=== PATIENT | female | born 1970 | race Caucasian/White ===

== ENCOUNTER 2020-07-12 13:41 | Observation (INO) | payer OTHER, SELFPAY ==
[2020-07-12] VITALS (16 sets, daily range): BP systolic 110–131; BP diastolic 59–79; PULSE 62–79; RESP 14–20; TEMP 36–36.2; O2SAT 97–100; BMI 30.6; BMI 30.4
--- NOTE | ~2020-07-12 | MR_ITS ---
EXAMINATION: MR brain/brain stem wo/w con DATE: 07/14/2020 09:24 CUSTOMER SOLUTIONS ARCHITECT INDICATION: CVA. Fatigue. Off balance. TECHNIQUE: Magnetic resonance imaging (MRI) of the brain and brainstem was performed without and with 15 cc MultiHance intravenous contrast. Sequences included sagittal and axial T1-weighted SE, axial d iffusion-weighted FS SE, axial T2*-weighted GRE, axial T2-weighted FLAIR Propeller, and axial T2-weig hted Propeller. Apparent diffusion coefficient (ADC) maps were created. COMPARISON: CT dated 07/12/2020 FINDINGS: The brain volume and ventricular system are within normal limits. The brain parenchymal si gnal intensity pattern and vega/white matter is normal and there is no evidence of hemorrhage, space occupying masses or infarctions. The flow signal voids of the major arterial structures about the [place] and within the alesia r dural venous sinuses appear grossly unremarkable and patent. The seventh and eighth cranial nerve complexes are normal. The mid sagittal image demonstrates a normal craniovertebral junction and mary us callosum. The paranasal sinuses are grossly unremarkable. No abnormal contrast enhancement was appreciated. IMPRESSION: 1: Unremarkable MRI of the brain. Reviewed, dictated and finalized at location A. OMER SOLUTIONS ARCHITECT
--- NOTE | ~2020-07-12 | CT_ITS ---
EXAMINATION: CT chest wo con DATE: 07/12/2020 17:29 INDICATION: Abnormal chest x-ray TECHNIQUE: Computed tomography (CT) of the chest was performed without intravenous contrast. Addition al 3D reconstructions utilizing coronal maximum intensity projection (MIP) were performed. Automated exposure control and iterative reconstruction technique were employed. The dose-length product was 22 9.62 mGy-cm. COMPARISON: None FINDINGS: There are patchy airspace opacities with peripheral and lower lung predominance. No pleural effusion or pneumothorax. Mild emphysema most evident in the regions of airspace opacities. Heart size is norm al. No pericardial effusion. Thoracic aorta is normal in caliber. No pathologically enlarged thoracic lymphadenopathy. Cholecystectomy clips at the gallbladder fossa. Mild lower thoracic levocurvature w ith severe spondylosis. Chronic appearing anterior wedging at T11 and T12. Additional severe lower ce rvical spondylosis. IMPRESSION: 1. Patchy bilateral airspace opacities with peripheral and lower lung predominance. Differential woul d include pneumonia including COVID 19, pulmonary edema and more chronic interstitial lung disease wi pattern referring nonspecific interstitial pneumonia (NSIP) over usual interstitial pneumonia (UIP ) or organizing pneumonia. Reviewed, dictated and finalized at location A. ENCY COUNTER IMPRESSION: 1. Patchy bilateral airspace opacities with peripheral and lower lung predomina nce. Differential would include pneumonia including COVID 19, pulmonary edema a nd more chronic interstitial lung disease with pattern referring nonspecific in terstitial pneumonia (NSIP) over usual interstitial pneumonia (UIP) or organizi ng pneumonia.
--- NOTE | ~2020-07-12 | CT_ITS ---
EXAMINATION: CT BRAIN W/O DATE: 07/12/2020 15:40 INDICATION: Dizziness TECHNIQUE: Computed tomography (CT) of the head was performed without intravenous contrast. The dose- length product was 605.33 mGy-cm. Automated exposure control and iterative reconstruction technique w ere employed. COMPARISON: No prior studies for comparison. FINDINGS: Normal brain parenchymal volume for age. Normal vega-white differentiation. No acute intrac ranial hemorrhage, infarction, mass or mass effect. No ventriculomegaly or midline shift. Midline sagittal images demonstrate a normal corpus callosum, c raniovertebral junction and sella turcica. Basilar cisterns are patent. Paranasal sinuses and mastoids are pneumatized. No depressed skull fractures. IMPRESSION: 1. No acute intracranial abnormality. Reviewed, dictated and finalized at location B. AL ANALYTICS HEAD
--- NOTE | ~2020-07-12 | US_ITS ---
EXAMINATION: US carotid duplex BI DATE: 07/13/2020 15:31 INDICATION: Disturbance of skin sensation. Dizziness and confusion. TECHNIQUE: Grayscale, color Doppler, and pulsed Doppler images of the cervical carotid arteries were obtained. The degree of vessel stenosis is placed in one of the following categories: normal, <50%, 5 0-69%, >=70% but less than near-occlusion, near-occlusion, or total occlusion. Note that percent sten osis relative to normal distal artery lumen diameter is indirectly measured from velocity measurement s as described by Marino, et al. Radiology 2003; 229:340-346. COMPARISON: None. FINDINGS: RIGHT: The right common carotid artery (CCA) peak systolic velocity (PSV) is 92 cm/s. The right internal car otid artery (ICA) PSV is 92 cm/s. The right ICA end-diastolic velocity (EDV) is 19 cm/s. The right IC A/CCA PSV ratio is 1.0. Grayscale and color Doppler images demonstrate no appreciable stenosis or zora que in the ICA. The external carotid artery (ECA) PSV is 90 cm/s. There is antegrade flow in the righ t vertebral artery. LEFT: The left CCA PSV is 98 cm/s. The left ICA PSV is 112 cm/s. The left ICA EDV is 31 cm/s. The left ICA/ CCA PSV ratio is 1.1. Grayscale and color Doppler demonstrate no appreciable stenosis or plaque in th e ICA. The ECA PSV is 108 cm/s. There is antegrade flow in the left vertebral artery. Incidentally no sabiha is a 2.0 cm wider than tall solid hypoechoic left thyroid mass with coarse shadowing calcificatio ns (TI-RADS 4, moderately suspicious , FNA if >=1.5 cm, annual followup is >1 cm). IMPRESSION: 1. No appreciable plaque or stenosis in the right internal carotid artery. 2. No appreciable plaque or stenosis in the left internal carotid artery. 3. 2.0 cm TI-RADS 4 left thyroid nodule for which ultrasound-guided biopsy would be recommended. Reviewed, dictated and finalized at location A. Y ROLLING MACHINE OPERATOR IMPRESSION: 1. No appreciable plaque or stenosis in the right internal carotid artery. 2. No appreciable plaque or stenosis in the left internal carotid artery. 3. 2.0 cm TI-RADS 4 left thyroid nodule for which ultrasound-guided biopsy woul d be recommended.
--- NOTE | 2020-07-12 14:04 | ECG_ITS ---
Measurements Intervals [place] Rate: 76 P: 59 SD: 139 QRS: 28 QRSD: 89 T: 42 QT: 356 QTc: 401 Interpretive Statements SINUS RHYTHM BASELINE ARTIFACT- V6 NORMAL ECG Electronically Signed On 07-12-2020 14:09:20 SHEET HEATER HELPER by Donovan Gordon D.O.
[2020-07-12 14:20] LABS: Basophils Absolute Auto 0.1 K/mm3 (0.0-0.1); Basophils Percent Auto 0.8 % (0.2-1.2); Eosinophils Absolute Auto 0.3 K/mm3 (0-0.3); Eosinophils Percent Auto 3.6 % (0-4.4); Hematocrit 37.8 % (37.0-47.0); Hemoglobin 12.3 g/dL (12.0-15.0); Immature Granulocyte Absolute 0.02 K/mm3 (0.00-0.031); Immature Granulocyte Percent A 0.2 % (0-0.5); Lymphocytes Absolute Auto 2.86 K/mm3 (0.9-3.2); Lymphocytes Percent Auto 34.5 % (18.3-44.2); Mean Corpuscular HGB Conc 32.5 g/dl (32-36); Mean Corpuscular Hemoglobin 30.2 pg (26-34); Mean Corpuscular Volume 92.9 fl (80-100); Mean Platelet Volume 10.3 fl (7.4-10.4); Monocytes Absolute Auto 0.5 K/mm3 (0.1-0.6); Monocytes Percent Auto 5.5 % (2.6-8.5); Neutrophils Absolute Auto 4.6 K/mm3 (1.3-6.7); Neutrophils Percent Auto 55.4 % (45.5-73.1); Platelet Count Result 290 k/mm3 (150-375); Red Blood Count 4.07 M/mm3 (4.2-5.4); Red Cell Distribution Width 12.7 % (11.5-14.5); White Blood Count 8.3 K/mm3 (4.5-10.0)
[2020-07-12 14:33] LABS: Anion Gap 6 mmol/L (8-16); Blood Urea Nitrogen 16 mg/dL (7-17); Calcium 9.5 mg/dL (8.4-10.2); Carbon Dioxide 27 mmol/L (22-30); Chloride 107 mmol/L (98-107); Estimated CRCL calculation 58 ml/min; Estimated Glomerular Filt Rate 53; Glucose 85 mg/dL (65-105); Potassium 3.9 mmol/L (3.4-5.0); Sodium 140 mmol/L (137-145)
--- NOTE | 2020-07-12 15:24 | ED.DIZZY ---
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 4 days ago patient woke up in the morning and with confusion, dizziness and urine incontinence. Could not drive to work at that day. The symptoms are improving slightly, still feeling slightly confused ago and generally tired. Patient lives alone, history of PTSD. Patient drove herself to work today and was told by some of the nurses upstairs to go to the emergency room for further evaluation. Currently patient main complaint is generalized tiredness and unsteadiness during walking. Patient denies any fever, chills, chest pain, shortness of breath, sore throat, headache, exposure to anybody known having COVID-19 Review of Systems Review of Systems: Narrative: CONSTITUTIONAL: Denies fever, chills, or sweats. EYES: Denies visual changes, redness, or discharge. ENT: Denies rhinorrhea, congestion, sore throat, or otalgia. CARDIOVASCULAR: Denies chest pain, palpitations, or edema. RESPIRATORY: Denies cough or dyspnea. GASTROINTESTINAL: Denies abdominal pain, nausea, vomiting, or diarrhea. GENITOURINARY: Denies dysuria or hematuria. SKIN: Denies rash or itching. MUSCULOSKELETAL: Denies back pain, joint pain, or myalgia. NEUROLOGIC: Confusion, dizziness, unsteadiness PSYCHIATRIC: Denies anxiety or depression. PMFSH Social History Social History Gender identity (if verbalized by the patient): Female Exam Narrative: Exam Narrative: General appearance: Well-developed, well-nourished Skin: Normal color Head: Normocephalic, nontraumatic Eyes: Clear conjunctiva ENT: Oropharynx normal, ears normal, nose normal Neck: Supple, nontender Chest and respiratory: Airway patent, no respiratory distress, no accessory muscle use Heart: Regular rate/rhythm Abdomen: Soft, nontender, no organomegaly, quiet bowel sounds Vascular: Normal peripheral pulses, normal capillary refill. Musculoskeletal: Normal range of motion, nontender back Neurologic: Alert and oriented ?3, left upper extremity drift Course Course Emergency Course: Stable Consultations Consultation #1: nereida Date: 07/12/20 Time: 16:35 Vital Signs Vital signs: Vital Signs Temperature 36.2 C L 07/12/20 13:58 Pulse Rate 79 07/12/20 13:58 Respiratory Rate 18 07/12/20 13:58 Blood Pressure 131/79 07/12/20 13:58 Pulse Oximetry 100 07/12/20 13:58 Temperature 36.2 C L 07/12/20 13:58 Pulse Rate 79 07/12/20 13:58 Respiratory Rate 18 07/12/20 13:58 Blood Pressure 131/79 07/12/20 13:58 Pulse Oximetry 100 07/12/20 13:58 MDM - Dizziness MDM Narrative Medical decision making narrative: Patient presents with dizziness, Physical exam showed left upper extremity drift. Labs, chest x-ray, CT head ordered. Further plan to follow Differential Diagnosis Differential diagnosis: Likely orthostatic hypotension, vertebral basilar insufficiency and cerebrovascular accident Lab Data Result diagrams: 07/12/20 14:09 07/12/20 14:09 Labs: Lab Results 07/12/20 07/12/20 07/12/20 Range/Units 14:08 14:08 14:09 WBC 8.3 (4.5-10.0) K/mm3 RBC 4.07 L (4.2-5.4) M/mm3 Hgb 12.3 (12.0-15.0) g/dL Hct 37.8 (37.0-47.0) % MCV 92.9 (80-100) fl MCH 30.2 (26-34) pg MCHC 32.5 (32-36) g/dl RDW 12.7 (11.5-14.5) % Plt Count 290 (150-375) k/mm3 MPV 10.3 (7.4-10.4) fl Immature
[2020-07-12 15:58] LABS: CRP < 0.5 mg/dL (<1.0)
[2020-07-12 16:04] LABS: Erythrocyte Sedimentation Rate 21 mm/hr (0-20)
--- NOTE | 2020-07-12 16:13 | PC.NURSE ---
patient here with dizziness. see triage notes. resting on stretcher. states she takes 2 low dose BP meds for migraines. not new. texting on phone now. no pain. SL inserted. patient unhooked from monitor. sent to restroom. no dizziness now.
--- NOTE | 2020-07-12 16:45 | PC.NURSE ---
orthostatic vitals done. patient then ambulated to restroom. no dizziness. beside POC done. patient updated on current treatment plan.
[2020-07-12] MEDS: ASPIRIN 325 MG TABLET PO (17:10)
--- NOTE | 2020-07-12 17:15 | PC.NURSE ---
patient back from CT. reviewed CXR results from May with patient. CT of chest was recommended then. ASA given. patient updated on plan for admission. patient not clear on why admission is needed. will notify provider.
--- NOTE | 2020-07-12 18:20 | PC.NURSE ---
provider here in room to review treatment plan.
--- NOTE | 2020-07-12 18:34 | PC.NURSE ---
[facility] faxed. patient now agreeable to admission.
--- NOTE | 2020-07-12 19:15 | PC.NURSE ---
[facility] faxed. patient reassigned to bed 300. will swab for Covid.
--- NOTE | 2020-07-12 20:20 | ADMGEN ---
This patient, Cedric Castrejon, was admitted to [facility] Surg Room 300-01. Patient/family oriented to hospital policies and general routines including ID bracelet, bed and alarms, visiting hours, pain management, procedures, bathroom and other care routines, personal items, smoking policy, room service/diet, and visiting hours. Information on how to activate the Rapid Response Team has been discussed. Patient/Family are encouraged to report perceived risks to care and to ask questions if they do not understand what they are told or what they should do.
--- NOTE | 2020-07-12 23:48 | PM.IMHP ---
H&P: HPI History of Present Illness Date/Time: 07/12/20 23:48 Chief complaint: acute cva Narrative: Cedric Castrejon is a 49 year old female who was a history of PTSD. The patient has not had any fever chills. The patient stated that she just felt very fatigued. Four days ago she woke up and was confused and dizzy and had urinary incontinence. She has no history of having any seizures. She denies any drug or alcohol use. The patient was not able to drive and work that day. The patient's symptoms were improved from that day. However once the patient got here she felt off balance. She was able to drive herself today. 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 The nurses center to the emergency room because of her confusion. She is also on steady during walking. When ED physician evaluated her he felt that she had a pronator drift. CT scan of the brain was found to be negative. The patient denies taking any new medication or taking anything over the counter out of the ordinary. Patient was swabbed for COVID-[address] scan of the chest was read as patchy bilateral airspace opacities with peripheral and lower lung predominance. Differential would include pneumonia including COVID-19 pulmonary edema and more chronic interstitial lung disease. The patient has been a long-term smoker. The patient was given aspirin. Neurology has been consulted. Patient is being admitted into observation status. Date of service 07/12/2020 Review of Systems Review of Systems: All systems reviewed & are unremarkable except as noted in HPI and below Constitutional: Constitutional: Reports as per HPI and Reports no additional constitutional complaints Eyes: Eyes: Reports as per HPI and Reports no additional eye complaints ENT: Reports system reviewed and no additional complaints, except as documented and Reports Normal hearing present Cardiovascular: Cardiovascular: Reports no additional cardiovascular complaints Respiratory: Respiratory: Reports no additional respiratory complaints and Reports no additional respiratory complaints Gastrointestinal: Gastrointestinal: Reports as per HPI and Reports no additional gastrointestinal complaints Musculoskeletal: Musculoskeletal: Reports no additional musculoskeletal complaints Integumentary/Breasts: Skin/Breast: Reports system reviewed and no additional complaints, except as docu and Reports as per HPI Neurologic: Reports system reviewed and no additional complaints, except as documented, Reports as per HPI and Reports Normal hearing present Psychiatric: Psychiatric: Reports no additional psychiatric complaints and Reports as per HPI Endocrine: Endocrine: Reports no additional endocrine complaints Hematologic/Lymphatic: Hematologic/Lymphatic: Reports no additional hematologic/lymphatic complaints Allergic/Immunologic: Allergic/Immunologic: Reports no additional allergic/immunologic complaints [facility] Past Medical History Medical History (Updated 07/13/20 @ 00:14 by Sun Lindsey NP) Anxiety H/O gastroesophageal reflux (GERD) Migraines PTSD (post-traumatic stress disorder) Surgical History Surgical History (Updated 07/13/20 @ 00:02 by Sun Lindsey NP) H/O colposcopy with cervical biopsy H/O prior ablation treatment Hx of cholecystectomy Status post right knee replacement Family History Family History Grandparent Colon cancer Acute myocardial infarction Social History Social History (Updated 07/13/20 @ 00:03 by Sun Lindsey NP) Social History: 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 She has 3 children. The youngest 1 lives with her but has been getting ready to get . Patient smokes about half pack a cigarettes a day. She occasionally socially drinks alcohol. She denies any illicit drug use. Patient is a full code she does not have a durable power trade mark attorney for healthcare. The patient is di
[2020-07-13] VITALS (8 sets, daily range): BP systolic 106–120; BP diastolic 51–64; PULSE 65–88; RESP 16–18; TEMP 36.1–36.6; O2SAT 98–100
--- NOTE | 2020-07-13 | ECHO_ITS ---
Patient Info Name: Cedric Castrejon Age: 49 years : 1970 Gender: Female Ht: 65 in Wt: 182 lbs BSA: 1.97 m2 HR: 68 bpm BP: 118 / 60 mmHg Heart Rhythm: Sinus Rhythm Technical Quality: Good Exam Date: 07/13/2020 10:20 AM Exam Location: [facility] Pulmonary Exam Room: 300 Patient Status: Inpatient Admit Date: 07/12/2020 Staff Ordering Physician: Vaishali Soto PA-C Appliance Sales Associate: Rachel Man RDCS Attending Provider: Vaishali Soto PA-C Referring Physician: BREA JAMESON MD; Exam Type: CA echo doppler w bubble study Study Info Indications - stroke symptoms Complete two-dimensional, color flow and Doppler transthoracic echocardiogram is performed with agitated saline. Contrast/Agitated Saline Contrast/Ag. Saline: Agitated Saline Amount: 20.00 ml Existing IV Access: Yes IV Access Condition: patent with no signs of infiltration Summary 1. Left ventricular systolic function is normal, estimated at 55-60%. 2. There is no increased left ventricular wall thickness. 3. Intracardiac shunt at atrial level consistent with small patent foramen ovale with injection of agitated saline with Valsalva. Shunt not appreciated without Valsalva. Clinical correlation advised. Consider transesophageal echocardiogram if clinically indicated. 4. There is trace mitral valve regurgitation. 5. There is trace tricuspid valve regurgitation. 6. No pulmonary hypertension, estimated pulmonary arterial systolic pressure is 28 mmHg. 7. There is no aortic valve stenosis. 8. Normal inferior vena cava with >50% collapse upon inspiration consistent with normal right atrial pressure, 5 mmHg. Left Ventricle Left ventricular chamber dimension is normal. Left ventricular systolic function is normal, estimated at 55-60%. There is no increased left ventricular wall thickness. The left ventricular diastolic function is grade I diastolic dysfunction. Right Ventricle Right ventricular chamber dimension is normal. Right ventricular systolic function is normal. Left Atria Left atrial chamber dimension is normal. Right Atria Right atrial chamber dimension is normal. Atrial Septum Intracardiac shunt at atrial level consistent with small patent foramen ovale with injection of agitated saline with Valsalva. Shunt not appreciated without Valsalva. Clinical correlation advised. Consider transesophageal echocardiogram if clinically indicated. Aortic Valve The aortic valve is trileaflet. There is mild aortic valve sclerosis. There is no aortic valve stenosis. There is trace aortic valve regurgitation. Pulmonic Valve The pulmonic valve is not well visualized. There is trace pulmonic regurgitation. Mitral Valve The mitral valve has thickened leaflets. There is trace mitral valve regurgitation. Tricuspid Valve The tricuspid valve leaflets are normal. There is trace tricuspid valve regurgitation. No pulmonary hypertension, estimated pulmonary arterial systolic pressure is 28 mmHg. Pericardium/Pleural The pericardium appears normal. There is no pericardial effusion. Inferior Vena Cava Normal inferior vena cava with >50% collapse upon inspiration consistent with normal right atrial pressure, 5 mmHg. Aorta The aortic root size at the sinus of Valsalva is normal. Left Ventricular Outflow Tract Name Sondra
[2020-07-13] MEDS: MIRTAZAPINE 7.5 MG TABLET PO ×2 (02:13→20:03)
[2020-07-13] MEDS: PRAZOSIN HCL 1 MG CAPSULE 2 MG PO ×2 (02:13→20:03)
[2020-07-13] MEDS: buPROPion HCL XL (24 HR) 150 MG TABCR 300 MG PO (08:10)
[2020-07-13] MEDS: MELOXICAM 7.5 MG TABLET 15 MG PO (08:10)
[2020-07-13] MEDS: PANTOPRAZOLE 40 MG TABLET PO (08:10)
[2020-07-13] MEDS: TOPIRAMATE 100 MG TABLET 200 MG PO ×2 (08:11→17:19)
[2020-07-13] MEDS: ASPIRIN 81 MG CHEWABLE TABLET PO (08:16)
--- NOTE | 2020-07-13 11:14 | WPDNEURCNPN ---
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 As per the information available she simply felt fatigued. Four days ago she woke up and was confused and dizzy and developed urinary incontinence. She has no history of seizures. She denied any drug or alcohol use. He was unable to drive that particular day. Subsequently patient's symptomatology improved. But by the time she came to the emergency room she was of balance. She was able to drive herself. 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 Though her CT scan of the head was negative her CT scan of the chest was compatible with patchy bilateral airspace opacities with peripheral and lower lung predominance with the differential diagnosis of pneumonia including COVID-19 pulmonary edema or chronic interstitial lung disease she is a smoker by history she did receive aspirin. Patient does have ongoing history of anxiety, GERD, posttraumatic stress disorder, and migraines. In the past she has undergone cholecystectomy and right knee replacement. She has history of current everyday smoker with smoking pack years of 18.5. Evaluation up until now includes a normal CBC with sed rate of 21 creatinine of 1.10 with estimated GFR of 53 TB test negative tubular at less than 13.5 with IgG antibody more than 120 and C-reactive protein 0.5 Review of Systems Review of Systems: All systems reviewed & are unremarkable except as noted in HPI and below PMFSH Past Medical History Medical History Anxiety H/O gastroesophageal reflux (GERD) Migraines PTSD (post-traumatic stress disorder) Surgical History Surgical History H/O colposcopy with cervical biopsy H/O prior ablation treatment Hx of cholecystectomy Status post right knee replacement Family History Family History Grandparent Colon cancer Acute myocardial infarction Social History Social History Social History: 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 She has 3 children. The youngest 1 lives with her but has been getting ready to get . Patient smokes about half pack a cigarettes a day. She occasionally socially drinks alcohol. She denies any illicit drug use. Patient is a full code she does not have a durable power trademark attorney for healthcare. The patient is Smoking packs per day: 0.5 Smoking cigarettes per day: 10.0 Years smoked: 37 Smoking pack-years: 18.50 Smoking status: Current every day smoker Tobacco type: cigarettes Substance use type: does not use Gender identity (if verbalized by the patient): Female Spiritual care concerns: No Meds Home Medications and Allergies Home Medications Medication Instructions Recorded Confirmed Type albuterol sulfate 2 puff INHALATION Q4H PRN 07/12/20 07/12/20 History bupropion HCl [Wellbutrin XL] 300 mg PO QAM 07/12/20 07/12/20 History meloxicam
[2020-07-13 12:35] LABS: SARS-CoV-2 RNA PCR Negative
--- NOTE | 2020-07-13 15:01 | PM.IMPN ---
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 CT brain was unremarkable. MRI was ordered and is pending. Echocardiogram was performed and shows LV function with EF 55-60%, small PFO with valsalva only, trace mitral and tricuspid regurgitation, no aortic stenosis, and no pulmonary hypertension. Carotid doppler US shows no evidence in the carotids bilaterally. Await MRI results. I have also ordered EEG given concern for possible seizure with post-ictal confusion. (2) Anxiety: Code(s): F41.9 - Anxiety disorder, unspecified Status: Chronic Assessment and Plan: Continue wellbutrin. (3) PTSD (post-traumatic stress disorder): Code(s): F43.10 - Post-traumatic stress disorder, unspecified Status: Chronic Assessment and Plan: Stable with no acute issues. Continue wellbutrin, mirtazapine, and prazosin. (4) Migraines: Code(s): G43.909 - Migraine, unspecified, not intractable, without status migrainosus Status: Chronic Assessment and Plan: Chronic. She does have evidence of PFO on echocardiogram. Continue rizatriptan, topiramate, and verapamil. (5) Gastroesophageal reflux: Code(s): K21.9 - Gastro-esophageal reflux disease without esophagitis Status: Chronic Assessment and Plan: Continue omeprazole. (6) Thyroid nodule: Code(s): E04.1 - Nontoxic single thyroid nodule Status: Acute Assessment and Plan: 2.0 cm TI-RADS 4 left thyroid nodule was demonstrated on carotid US. She will need US-guided biopsy of this nodule outpatient and can have this scheduled by her PCP. (7) Patent foramen ovale: Code(s): Q21.1 - Atrial septal defect Status: Acute Assessment and Plan: Demonstrated on echocardiogram. MRI is ordered for tomorrow. Will determine need for follow-up based on MRI findings. (8) Interstitial lung disease: Code(s): J84.9 - Interstitial pulmonary disease, unspecified Status: Acute Assessment and Plan: CT chest demonstrated patchy bilateral opacities with peripheral and lower lung predominance. COVID-19 testing is negative. She does not have clinical suspicion for pneumonia. She will benefit from outpatient pulmonary function testing and repeat CT chest with further workup per PCP and/or pulmonology based on those studies. (9) Urinary incontinence: Code(s): R32 - Unspecified urinary incontinence Status: Acute Assessment and Plan: The pt woke up the morning of 07/09 with significant confusion. The bed was wet due to overnight incontinence which is abnormal for her. This is concerning for possible seizure. I will order EEG. Neurology is following. Appreciate further input from neurology. (10) Tobacco abuse: Code(s): Z72.0 - Tobacco use Status: Acute Assessment and Plan: Encourage tobacco cessation. Subjective Date/time seen: 07/13/20 15:01 Mrs. Castrejon is a 49 y.o. with PMH significant for PTSD, migraine headaches, GERD, and anxiety who is seen in follow-up for neurologic symptoms including feeling off balance and prior confusion with one episode of urinary incontinence 4 days ago. She is feeling well overall today. She is not having any acute symptoms including no lateralizing weakness, speech change, or vision change. She is not having any paresthesias. She feels that confusion has improved. She notes occasional exertional dyspnea which she attributes to smoking. She does have occasional cough with her smoking as well. She denies headache but has a hx of migraine disorder. She denies chest pain and pleuritic pain. She is not having any fever or chills. She denies nausea and vomi
[2020-07-14] VITALS (12 sets, daily range): BP systolic 95–113; BP diastolic 45–64; PULSE 63–82; RESP 16–18; TEMP 36.1–36.8; O2SAT 98–100
[2020-07-14 05:40] LABS: Basophils Absolute Auto 0.1 K/mm3 (0.0-0.1); Basophils Percent Auto 1.1 % (0.2-1.2); Eosinophils Absolute Auto 0.4 K/mm3 (0-0.3); Eosinophils Percent Auto 6.1 % (0-4.4); Hematocrit 36.7 % (37.0-47.0); Hemoglobin 12.2 g/dL (12.0-15.0); Immature Granulocyte Absolute 0.01 K/mm3 (0.00-0.031); Immature Granulocyte Percent A 0.2 % (0-0.5); Lymphocytes Absolute Auto 2.59 K/mm3 (0.9-3.2); Lymphocytes Percent Auto 41.5 % (18.3-44.2); Mean Corpuscular HGB Conc 33.2 g/dl (32-36); Mean Corpuscular Volume 90.2 fl (80-100); Mean Platelet Volume 10.8 fl (7.4-10.4); Monocytes Absolute Auto 0.5 K/mm3 (0.1-0.6); Monocytes Percent Auto 8.5 % (2.6-8.5); Neutrophils Absolute Auto 2.7 K/mm3 (1.3-6.7); Neutrophils Percent Auto 42.6 % (45.5-73.1); Platelet Count Result 283 k/mm3 (150-375); Red Blood Count 4.07 M/mm3 (4.2-5.4); Red Cell Distribution Width 12.4 % (11.5-14.5); White Blood Count 6.2 K/mm3 (4.5-10.0)
[2020-07-14 05:50] LABS: Lactic Acid Reflex 0.6 mmol/L (0.7-2.1)
[2020-07-14 05:51] LABS: Alanine Aminotransferase 14 U/L (4-35); Alkaline Phosphatase 69 U/L (38-126); Anion Gap 7 mmol/L (8-16); Aspartate Amino Transferase 22 U/L (14-36); Bilirubin,Total 0.2 mg/dL (0.2-1.3); Blood Urea Nitrogen 23 mg/dL (7-17); Calcium 8.8 mg/dL (8.4-10.2); Carbon Dioxide 24 mmol/L (22-30); Chloride 107 mmol/L (98-107); Estimated CRCL calculation 58 ml/min; Estimated Glomerular Filt Rate 53; Glucose 105 mg/dL (65-105); Magnesium 1.9 mg/dL (1.6-2.3); Potassium 3.8 mmol/L (3.4-5.0); Sodium 138 mmol/L (137-145)
[2020-07-14] MEDS: PANTOPRAZOLE 40 MG TABLET PO (08:01)
[2020-07-14] MEDS: MELOXICAM 7.5 MG TABLET 15 MG PO (08:01)
[2020-07-14] MEDS: ASPIRIN 81 MG CHEWABLE TABLET PO (08:01)
[2020-07-14] MEDS: TOPIRAMATE 100 MG TABLET 200 MG PO ×2 (08:02→16:51)
[2020-07-14] MEDS: buPROPion HCL XL (24 HR) 150 MG TABCR 300 MG PO (08:02)
[2020-07-14] MEDS: IBUPROFEN 600 MG TABLET PO ×2 (08:16→20:26)
--- NOTE | 2020-07-14 09:59 | PM.IMPN ---
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 CT brain was unremarkable. MRI shows no evidence of stroke. Echocardiogram was performed and shows LV function with EF 55-60%, small PFO with valsalva only, trace mitral and tricuspid regurgitation, no aortic stenosis, and no pulmonary hypertension. Carotid doppler US shows no evidence in the carotids bilaterally. I have also ordered EEG given concern for possible seizure with post-ictal confusion. Neurology is on board. Will await further neurology input. (2) Anxiety: Code(s): F41.9 - Anxiety disorder, unspecified Status: Chronic Assessment and Plan: Continue wellbutrin. (3) PTSD (post-traumatic stress disorder): Code(s): F43.10 - Post-traumatic stress disorder, unspecified Status: Chronic Assessment and Plan: Stable with no acute issues. Continue wellbutrin, mirtazapine, and prazosin. (4) Migraines: Code(s): G43.909 - Migraine, unspecified, not intractable, without status migrainosus Status: Chronic Assessment and Plan: Chronic. She does have evidence of PFO on echocardiogram. Continue rizatriptan, topiramate, and verapamil. (5) Gastroesophageal reflux: Code(s): K21.9 - Gastro-esophageal reflux disease without esophagitis Status: Chronic Assessment and Plan: Continue omeprazole. (6) Thyroid nodule: Code(s): E04.1 - Nontoxic single thyroid nodule Status: Acute Assessment and Plan: 2.0 cm TI-RADS 4 left thyroid nodule was demonstrated on carotid US. She will need US-guided biopsy of this nodule outpatient and can have this scheduled by her PCP. I discussed this with the pt and she verbalized understanding. TSH is normal at 1.25. (7) Patent foramen ovale: Code(s): Q21.1 - Atrial septal defect Status: Acute Assessment and Plan: Demonstrated on echocardiogram. MRI is unremarkable and shows no evidence of ischemic stroke. (8) Interstitial lung disease: Code(s): J84.9 - Interstitial pulmonary disease, unspecified Status: Acute Assessment and Plan: CT chest demonstrated patchy bilateral opacities with peripheral and lower lung predominance. COVID-19 testing is negative. She does not have clinical suspicion for pneumonia. She will benefit from outpatient pulmonary function testing and repeat CT chest with further workup per PCP and/or pulmonology based on those studies. (9) Urinary incontinence: Code(s): R32 - Unspecified urinary incontinence Status: Acute Assessment and Plan: The pt woke up the morning of 07/09 with significant confusion. The bed was wet due to overnight incontinence which is abnormal for her. This is concerning for possible seizure. EEG has been ordered and is pending. Neurology is following. Appreciate further input from neurology. (10) Tobacco abuse: Code(s): Z72.0 - Tobacco use Status: Acute Assessment and Plan: Encourage tobacco cessation. Subjective Date/time seen: 07/14/20 09:59 Mrs. Castrejon is a 49 y.o. with PMH significant for PTSD, migraine headaches, GERD, and anxiety who is seen in follow-up for neurologic symptoms including feeling off balance and prior confusion with one episode of urinary incontinence overnight 07/08. No acute events were reported overnight. She reports that she did not sleep very well and her neck is a bit stiff. She took ibuprofen with improvement. She thinks this is because the bed and pillow are uncomfortable because she was not having this at all before last night. She has chronic headaches and migraines due to underlying migraine disorder but does not complain of worsen
[2020-07-14] MEDS: MIRTAZAPINE 7.5 MG TABLET PO (20:26)
[2020-07-14] MEDS: PRAZOSIN HCL 1 MG CAPSULE 2 MG PO (20:26)
[2020-07-15] VITALS: PULSE 62
[2020-07-15 04:00] VITALS: PULSE 81
[2020-07-15 05:42] VITALS: BP 102/46; PULSE 61; RESP 18; TEMP 37.2; O2SAT 96
[2020-07-15 06:46] LABS: Basophils Absolute Auto 0.1 K/mm3 (0.0-0.1); Basophils Percent Auto 1.1 % (0.2-1.2); Eosinophils Absolute Auto 0.4 K/mm3 (0-0.3); Eosinophils Percent Auto 5.5 % (0-4.4); Hematocrit 36.9 % (37.0-47.0); Hemoglobin 12.1 g/dL (12.0-15.0); Immature Granulocyte Absolute 0.02 K/mm3 (0.00-0.031); Immature Granulocyte Percent A 0.3 % (0-0.5); Lymphocytes Absolute Auto 2.39 K/mm3 (0.9-3.2); Lymphocytes Percent Auto 37.6 % (18.3-44.2); Mean Corpuscular HGB Conc 32.8 g/dl (32-36); Mean Corpuscular Volume 91.6 fl (80-100); Monocytes Absolute Auto 0.6 K/mm3 (0.1-0.6); Monocytes Percent Auto 8.8 % (2.6-8.5); Neutrophils Percent Auto 46.7 % (45.5-73.1); Platelet Count Result 276 k/mm3 (150-375); Red Blood Count 4.03 M/mm3 (4.2-5.4); Red Cell Distribution Width 12.3 % (11.5-14.5); White Blood Count 6.4 K/mm3 (4.5-10.0)
[2020-07-15 07:46] LABS: Alanine Aminotransferase 15 U/L (4-35); Albumin Level 3.7 g/dL (3.5-5.1); Alkaline Phosphatase 66 U/L (38-126); Anion Gap 7 mmol/L (8-16); Aspartate Amino Transferase 22 U/L (14-36); Bilirubin,Total 0.2 mg/dL (0.2-1.3); Blood Urea Nitrogen 18 mg/dL (7-17); Calcium 9.2 mg/dL (8.4-10.2); Carbon Dioxide 25 mmol/L (22-30); Chloride 109 mmol/L (98-107); Estimated CRCL calculation 64 ml/min; Estimated Glomerular Filt Rate 59; Glucose 89 mg/dL (65-105); Potassium 3.7 mmol/L (3.4-5.0); Sodium 141 mmol/L (137-145)
[2020-07-15] MEDS: RIZATRIPTAN BENZOATE 10 MG TABLET PO (07:54)
[2020-07-15 08:00] VITALS: PULSE 67
--- NOTE | 2020-07-15 09:22 | WPDNEUROPN ---
Progress Note: A&P Assessment and Plan (1) Thyroid nodule: Code(s): E04.1 - Nontoxic single thyroid nodule Status: Acute (2) Patent foramen ovale: Code(s): Q21.1 - Atrial septal defect Status: Acute (3) Migraines: Code(s): G43.909 - Migraine, unspecified, not intractable, without status migrainosus Status: Chronic Additional Plan patient can be discharged on aspirin 81 mg daily in addition to the cardiology opinion for further investigation if necessary Review of Systems Review of Systems: All systems reviewed & are unremarkable except as noted in HPI and below Exam Narrative: Exam Narrative: examination remains stable Objective Data Vital Signs Vital Signs: Vital Signs - 24 hr 07/14/20 12:00 07/14/20 14:00 07/14/20 16:00 Temperature 36.2 C L Pulse Rate 82 75 75 Respiratory Rate 18 Blood Pressure 107/61 Pulse Oximetry 100 07/14/20 20:00 07/14/20 22:00 07/15/20 00:00 Temperature 36.8 C Pulse Rate 64 69 62 Respiratory Rate 18 Blood Pressure 95/45 L Pulse Oximetry 98 07/15/20 04:00 07/15/20 05:42 Temperature 37.2 C Pulse Rate 81 61 Respiratory Rate 18 Blood Pressure 102/46 L Pulse Oximetry 96 Intake/Output Intake/Output: Intake & Output 07/12/20 07/13/20 07/14/20 07/15/20 23:59 23:59 23:59 23:59 Intake Total 1970 2810 Output Total 1850 3700 1300 Balance 120 -890 -1300 Meds/Results Medications: Active Medications Generic Name Dose Route Start Last Admin Trade Name Freq PRN Reason Stop Dose Admin Albuterol 2 puff 07/13/20 00:13 Albuterol Sulfate (*Sp) Aerosol 1 Puff INHALATION Q4HRT PRN Dyspnea Aspirin 81 mg 07/13/20 08:00 07/14/20 08:01 Aspirin 81 Mg Chewable Tablet PO 81 mg DAILY@0800 THANIA Administration Bupropion HCl 300 mg 07/13/20 09:00 07/14/20 08:02 Bupropion Hcl Xl (24 Hr) 150 Mg Tabcr PO 300 mg QAM THANIA Administration Ibuprofen 600 mg 07/14/20 08:04 07/14/20 20:26 Ibuprofen 600 Mg Tablet PO 600 mg Q6H PRN Administration Back pain Meloxicam 15 mg 07/13/20 09:00 07/14/20 08:01 Meloxicam 7.5 Mg Tablet PO 08/12/20 09:01 15 mg DAILY THANIA Administration Mirtazapine 7.5 mg 07/13/20 01:15 07/14/20 20:26 Mirtazapine 7.5 Mg Tablet PO 7.5 mg HS THANIA Administration Nonformulary Drug- 1 each 07/13/20 09:00 07/14/20 08:02 Verapamil Er 90mg PO 08/12/20 09:01 1 each DAILY THANIA Administration Pantoprazole Sodium 40 mg 07/13/20 09:00 07/14/20 08:01 Pantoprazole 40 Mg Tablet PO 40 mg QAM THANIA Administration Prazosin HCl 2 mg 07/13/20 01:20 07/14/20 20:26 Prazosin Hcl 1 Mg Capsule PO 08/12/20 01:21 2 mg HS THANIA Administration Rizatriptan Benzoate 10 mg 07/13/20 01:17 07/15/20 07:54 Rizatriptan Benzoate 10 Mg Tablet PO 10 mg DAILY PRN Administration Migraine Headache Topiramate 200 mg 07/13/20 09:00 07/14/20 16:51 Topiramate 100 Mg Tablet PO 200 mg BID THANIA Administration Radiology Results: ITS Impressions Head CT 07/12/20 15:44 IMPRESSION: 1. No acute intracranial abnormality. Chest CT 07/12/20 17:32 IMPRESSION: 1. Patchy bilateral airspace opacities with peripheral and lower lung predominance. Differential would include pneumonia including COVID 19, pulmonary edema and more chronic interstitial lung disease with pattern referring nonspecific interstitial pneumonia (NSIP) over usual interstitial pneumonia (UIP) or organizing pneumonia. Carotid Doppler Study 07/13/20 15:46 IMPRESSION: 1. No appreciable plaque or stenosis in the right internal carotid artery. 2. No appreciable plaque or stenosis in the left internal carotid artery. 3. 2.0 cm TI-RADS 4 left thyroid nodule for which ultrasound-guided biopsy would be recommended. Brain MRI 07/14/20 09:24 IMPRESSION: 1: Unremarkable MRI of the brain. Labs Labs: Laboratory Results - last 24 hr
[2020-07-15] MEDS: buPROPion HCL XL (24 HR) 150 MG TABCR 300 MG PO (10:00)
[2020-07-15] MEDS: PANTOPRAZOLE 40 MG TABLET PO (10:01)
[2020-07-15] MEDS: TOPIRAMATE 100 MG TABLET 200 MG PO (10:01)
[2020-07-15] MEDS: MELOXICAM 7.5 MG TABLET 15 MG PO (10:01)
[2020-07-15] MEDS: ASPIRIN 81 MG CHEWABLE TABLET PO (10:01)
[2020-07-15 12:00] VITALS: PULSE 86
--- NOTE | 2020-07-15 13:48 | PM.CNCAR ---
Assessment and Plan Additional Plan 49-year-old female with a history of a serendipitous Anuradha identified patent foramen ovale on saline contrast study. She was admitted with the clinical diagnosis of a CVA which should be discarded as there is no objective evidence of a CVA. Her cerebral MRI was an unremarkable study. Her echo demonstrates no other pathology other than evidence of a small PFO with shunting during the Valsalva maneuver. There is no indication for treating/ closing a PFO in this setting. I do not have any other cardiac recommendations to make at this time. She can follow-up with her PCP. If she does have a systemic embolic event than treating the foramen ovale should be considered in the future Wil Yates MD [facility] History of Present Illness History of Present Illness Consult date/time: 07/15/20 13:48 Reason For Visit: acute cva Narrative: This is a 49-year-old woman I am asked to see at the request of the hospitalist today because she had an echocardiogram done over the weekend the demonstrates the presence of a small patent foramen ovale and saline contrast injection. She entered the hospital that day with history of having had some unusual neurological symptoms which included some incontinence of urine and confusion which seemed to have cleared without any specific treatment or without a diagnosis having been made. She did not have any symptoms typical of a CVA. She has had no evidence of a CVA identified by MRI. Patient is currently asymptomatic and feels well hoping to be discharged. The echocardiogram other than demonstrating a intracardiac shunt at the level of the atrial septum with Valsalva was otherwise an unremarkable exam. patient is physically active does not have any exertional symptoms such as chest pain dyspnea denies any symptoms of palpitations orthopnea PND edema there is no history of syncope. Review of Systems Constitutional: Constitutional: Reports no additional constitutional complaints Eyes: Eyes: Reports no additional eye complaints ENT: Reports system reviewed and no additional complaints, except as documented Cardiovascular: Cardiovascular: Reports no additional cardiovascular complaints Respiratory: Respiratory: Reports no additional respiratory complaints Genitourinary: Genitourinary: Reports no additional female genitourinary complaints Musculoskeletal: Musculoskeletal: Reports no additional musculoskeletal complaints Integumentary/Breasts: Skin/Breast: Reports system reviewed and no additional complaints, except as docu Neurologic: Reports as per HPI Psychiatric: Comments: Patient has a history of posttraumatic stress disorder Endocrine: Endocrine: Reports no additional endocrine complaints Hematologic/Lymphatic: Hematologic/Lymphatic: Reports no additional hematologic/lymphatic complaints Allergic/Immunologic: Allergic/Immunologic: Reports no additional allergic/immunologic complaints PMFSH Past Medical History Medical History Anxiety H/O gastroesophageal reflux (GERD) Migraines PTSD (post-traumatic stress disorder) Surgical History Surgical History H/O colposcopy with cervical biopsy H/O prior ablation treatment Hx of cholecystectomy Status post right knee replacement Family History Family History Grandparent Colon cancer Acute myocardial infarction Social History Social History Social History: 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 She has 3 children. The youngest 1 lives with her but has been getting ready to get . Patient smokes about half pack a cigarettes a day. She occasionally socially drinks alcohol. She denies any illicit drug use. 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 The patient is
[2020-07-15 14:00] VITALS: BP 125/75; PULSE 71; RESP 16; TEMP 36.9; O2SAT 100
--- NOTE | 2020-07-15 16:30 | PM.DS ---
DS: Admitting Diagnosis Admitting Diagnosis Admitting Diagnosis: Neurologic symptoms DS: Discharge Diagnosis Discharge Diagnosis (1) Vertebral basilar insufficiency: Code(s): G45.0 - Vertebro-basilar artery syndrome Status: Acute Assessment and Plan: Discharge Summary (Date of service 07/15/20): Mrs. Castrejon is a 49 y.o. with PMH significant for PTSD, migraine headaches, GERD, and anxiety who presented to the emergency department 07/12/20 for the evaluation of generalized weakness, unsteadiness, and prior confusion. She reported that she woke up 07/09 and noticed she had urinated in the bed overnight. She reproted that she was so confused that morning that she had to get help to use her phone. She reported that the confusion improved but she still felt off balance and weak. She was admitted to the hospitalist service due to concern for possible CVA as symptoms were felt concerning for vertebrobasilar insufficiency. Her neurological exam was very reassuring. CT brain was unremarkable. MRI showed no evidence of stroke. Echocardiogram showed normal LV function with EF 55-60%, small PFO with valsalva only, trace mitral and tricuspid regurgitation, no aortic stenosis, and no pulmonary hypertension. Carotid doppler US showed no evidence of ICA stenosis bilaterally. Her symptoms of urinary incontinence and confusion were concerning for possible seizure. EEG was performed and she was seen by neurology who recommended she begin keppra and aspirin. Dr. Mays felt that she was stable for discharge and he planned to call the patient after discharge to discuss EEG results once available. She was advised not to drive until she was cleared to drive by neurology. She was discharged in hemodynamically stable condition on the afternoon of 07/15/20. (2) Urinary incontinence: Code(s): R32 - Unspecified urinary incontinence Status: Acute Assessment and Plan: The pt woke up the morning of 07/09 with significant confusion. The bed was wet due to overnight incontinence which is abnormal for her. This was concerning for possible seizure with possible post-ictal confusion. EEG was ordered and was not read at the time of discharge but neurology recommended she start keppra and follow-up outpatient. She was advised not to drive until cleared by neurology. (3) Thyroid nodule: Code(s): E04.1 - Nontoxic single thyroid nodule Status: Acute Assessment and Plan: 2.0 cm TI-RADS 4 left thyroid nodule was demonstrated on carotid US. She will need US-guided biopsy of this nodule outpatient and can have this scheduled by her PCP. I discussed this with the pt and she verbalized understanding. TSH is normal at 1.25. (4) PTSD (post-traumatic stress disorder): Code(s): F43.10 - Post-traumatic stress disorder, unspecified Status: Chronic Assessment and Plan: Wellbutrin, mirtazapine, and prazosin were continued. (5) Migraines: Code(s): G43.909 - Migraine, unspecified, not intractable, without status migrainosus Status: Chronic Assessment and Plan: Chronic. Rizatriptan, topiramate, and verapamil were continued. (6) Gastroesophageal reflux: Code(s): K21.9 - Gastro-esophageal reflux disease without esophagitis Status: Chronic Assessment and Plan: Pantoprazole was given in place of omeprazole while inpatient. (7) Patent foramen ovale: Code(s): Q21.1 - Atrial septal defect Status: Acute Assessment and Plan: Demonstrated on echocardiogram. MRI is unremarkable and shows no evidence of ischemic stroke. She was seen by cardiology who recommended no further intervention including no need to close this at this point as there was no evidence of acute CVA. (8) Interstitial lung disease: Code(s): J84.9 - Interstitial pulmonary disease, unspecified Status: Acute Assessment and Plan: CT chest demonstrated patchy bila
[2020-07-15 17:11] LABS: Cholesterol 128 mg/dL (0-200); HDL Direct 35 mg/dL; Triglycerides 69 mg/dL (<150)
[2020-07-15 17:22] LABS: LDL Cholesterol Direct 71 mg/dL
--- NOTE | 2020-07-17 09:01 | WPDNEUROLOGY ---
Neurology EEG Report General Information Date of Study: 07/15/20 TEST eeg DIAGNOSIS confusion CONDITION OF RECORDING Awake drowsy and sleep EEG NUMBER [id number] CLINICAL HISTORY patient reported she woke up a couple of days ago confused and had wet the bed, went back to bed and slept for 2 days EEG DESCRIPTION basic resting occipital frequency consists of large amount of medium voltage well-organized 8 to 10 hertz per second alpha admixed with minimal amount of low-voltage 15 to 18 hertz per second beta. Low-voltage beta activity seen diffusely admixed with waxing and waning posterior alpha rhythm ,during drowsiness. Bilateral symmetrical sleep activity seen during sleep. hyperventilation not done. photic stimulation not done .non paroxysmal, non focal and non lateralizing IMPRESSION normal record
== END 2020-07-15 18:05 | disposition home or self-care (01) ==
LOC: ANHED 16:35 → ANH3MEDSUR 23:07
PROVIDERS: Nurse Practitioner; Physician Assistant; Admitting Provider Internal Medicine; Emergency Provider Emergency Medicine; PCP Family Medicine; Visit Provider Internal Medicine
DX: G45.0 Vertebro-basilar artery syndrome (principal); Q21.1 Atrial septal defect; G43.909 Migraine, unspecified, not intractable, without status migrainosus; Z20.828 Contact with and (suspected) exposure to other viral communicable diseases; R32 Unspecified urinary incontinence; E04.1 Nontoxic single thyroid nodule; F43.10 Post-traumatic stress disorder, unspecified; F17.210 Nicotine dependence, cigarettes, uncomplicated; F41.9 Anxiety disorder, unspecified; J84.9 Interstitial pulmonary disease, unspecified; K21.9 Gastro-esophageal reflux disease without esophagitis; Z96.651 Presence of right artificial knee joint
CPT/HCPCS: 36415; 70450; 70553; 71250; 80048; 80053; 80061; 81025; 83605; 83735; 84443; 85025; 85652; 86140; 87635; 93005; 93306; 93880; 95816; 96375; 99285; A9270; A9577; C9803; G0378; U0003

== ENCOUNTER 2020-07-29 15:34 | Outpatient (CLI) | payer OTHER, SELFPAY ==
--- NOTE | ~2020-07-29 | US_ITS ---
EXAMINATION: US thyroid DATE: 07/29/2020 16:19 INDICATION: Thyroid nodule. TECHNIQUE: Multiple ultrasound images of the thyroid were obtained. COMPARISON: None. FINDINGS: The right thyroid lobe measures 4.6 x 1.0 x 1.3 cm. The left thyroid lobe measures 5.2 x 1.4 x 2.0 c m. In the left thyroid lobe, there is a 2.0 cm solid, hypoechoic, [id number] nodule with lobula r margin and macrocalcification (TI-RADS TR5). IMPRESSION: 1. Left thyroid nodule. Ultrasound-guided fine-needle aspiration is recommended. Reviewed, dictated and finalized at location A. 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 Left thyroid nodule. Ultrasound-guided fine-needle aspiration is recommended .
== END 2020-07-29 15:35 | disposition home or self-care (01) ==
DX: G60.3 Idiopathic progressive neuropathy (principal); E04.1 Nontoxic single thyroid nodule
CPT/HCPCS: 76536

== ENCOUNTER 2020-08-30 10:43 | Outpatient (CLI) | payer OTHER, SELFPAY ==
--- NOTE | ~2020-08-30 | US_ITS ---
EXAMINATION: US FNA w image guidance DATE: 08/30/2020 11:47 INDICATION: Left thyroid nodule TECHNIQUE: A time-out was performed to verify the patient's name, date of , and procedure to be performed . The procedure and its benefits and risks were discussed with the patient. Risks specifically discus sed included bleeding and infection. The patient understood the risks and agreed to proceed. The neck was prepped and draped in the usual sterile manner. 3 mL 1% lidocaine was used for local anesthesia . 6 passes were made with a 25G needle into the lesion. Appropriate needle location was documented with continuous sonographic guidance. The specimens were passed to the medical technologist chief in the room. A sterile bandage was applied. There were no immediate complications. FINDINGS: Grayscale ultrasound images demonstrate biopsy needles advanced into the 2.0 cm TI RADS 5 left thyroi d nodule of concern. IMPRESSION: 1. Successful ultrasound-guided fine needle aspiration of . Reviewed, dictated and finalized at location A. 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
== END 2020-08-30 10:44 | disposition home or self-care (01) ==
PROVIDERS: PCP Family Medicine; Visit Provider Family Medicine
DX: E04.1 Nontoxic single thyroid nodule (principal)
CPT/HCPCS: 10005; 88173; 88305

== ENCOUNTER 2020-09-25 09:00 | Outpatient (CLI) | payer OTHER, SELFPAY ==
[2020-09-25 09:41] LABS: Alanine Aminotransferase 16 U/L (4-35); Albumin Level 3.8 g/dL (3.5-5.1); Alkaline Phosphatase 61 U/L (38-126); Aspartate Amino Transferase 24 U/L (14-36); Bilirubin,Total 0.2 mg/dL (0.2-1.3)
[2020-09-25 10:25] LABS: Iron 54 ug/dL (37-170)
[2020-09-25 10:35] LABS: Percent Iron Saturation 20 % (20-50)
== END 2020-09-25 09:01 | disposition home or self-care (01) ==
PROVIDERS: PCP Family Medicine; Visit Provider Family Medicine
DX: G60.3 Idiopathic progressive neuropathy (principal); Z51.81 Encounter for therapeutic drug level monitoring; Z79.899 Other long term (current) drug therapy
CPT/HCPCS: 36415; 80076; 82728; 83540; 83550

== ENCOUNTER 2020-10-09 09:31 | Outpatient (CLI) | payer OTHER, SELFPAY ==
[2020-10-09 12:39] LABS: Free T4 Free Thyroxine 1.29 ng/mL (0.78-2.19)
[2020-10-12 05:40] LABS: Thyroglobulin 16.3 ng/mL (2.8-40.9); Thyroglobulin Antibodies <1 IU/mL (<=1); Thyroid Peroxidase Antibodies <1 IU/mL (<9)
[2020-10-12 07:32] LABS: Triiodothyronine T3 Free 2.8 pg/mL (2.3-4.2)
== END 2020-10-09 09:32 | disposition home or self-care (01) ==
PROVIDERS: PCP Family Medicine; Visit Provider Otolaryngology
DX: E05.90 Thyrotoxicosis, unspecified without thyrotoxic crisis or storm (principal)
CPT/HCPCS: 36415; 84432; 84439; 84443; 84481; 86376; 86800

== ENCOUNTER → 2020-10-19 01:42 | Outpatient (CLI) | payer OTHER, SELFPAY ==
[2020-10-19 18:53] LABS: SARS-CoV-2 RNA PCR Negative
== END ==
PROVIDERS: PCP Family Medicine; Visit Provider Otolaryngology
DX: Z01.812 Encounter for preprocedural laboratory examination (principal); Z20.822 Contact with and (suspected) exposure to COVID-19
CPT/HCPCS: C9803; U0003; U0005

== ENCOUNTER 2020-10-22 01:15 | Day surgery (SDC) | payer OTHER, SELFPAY ==
[2020-10-16 12:48] VITALS: BMI 27.5
--- NOTE | 2020-10-21 08:10 | WPDANESEPPF ---
Anes - Initial Pre Proc Eval Procedure: Operation Date: 10/22/20 08:30 Proposed Procedures p Left Thyroidectomy - Kameron Mccall MD Date/Time: 10/21/20 08:10 Surgeon: Kameron Mccall MD Pre Op Diagnosis: Left Thyroid Nodule Patient Data Age: 50 Gender: F Height: 1.65 m Weight: 75 kg Allergies Allergy/AdvReac Type Severity Reaction Status Date / Time lamotrigine [From Lamictal] Allergy Intermediate Hives Verified 10/22/20 07:13 Home Medications Medication Instructions Recorded Confirmed Type albuterol sulfate 2 puff INHALATION Q4H PRN 07/12/20 10/22/20 History meloxicam 15 mg PO DAILY 07/12/20 10/22/20 History mirtazapine [Remeron] 7.5 mg PO HS 07/12/20 10/22/20 History prazosin 2 mg PO HS 07/12/20 10/22/20 History rizatriptan 10 mg PO ONCE PRN 07/12/20 10/22/20 History topiramate [Topamax] 200 mg PO BID 07/12/20 10/22/20 History verapamil 240 mg PO DAILY 07/12/20 10/22/20 History aspirin [Children's Aspirin] 81 mg PO DAILY@0800 #0 tablet 07/15/20 10/22/20 Rx alprazolam 0.5 mg tablet 0.5 mg PO TID PRN 10/08/20 10/22/20 History fluoxetine 20 mg capsule 40 mg PO DAILY 10/08/20 10/22/20 History hydrocodone 10 mg-acetaminophen 1 tablet PO QID PRN tablet 10/08/20 10/22/20 History 300 mg tablet tizanidine 4 mg capsule 4 mg PO QID PRN cap 10/08/20 10/22/20 History lidocaine 5 % topical cream 1 applic TOPICAL BID PRN 10/14/20 10/22/20 History mecobalamin (vitamin B12) 1,000 1,000 mcg PO DAILY 10/14/20 10/22/20 History mcg disintegrating tablet,sublingual meloxicam 15 mg tablet 15 mg PO DAILY 10/14/20 10/22/20 History multivitamin with [id number] 1 tablet PO DAILY 10/14/20 10/22/20 History 400 mcg-120 mg tablet Patient hx anesthesia problems: none Family hx anesthesia problems: none PMFSH Past Medical History Medical History (Updated 10/21/20 @ 08:11 by Jem Mckeon DO) Anxiety H/O gastroesophageal reflux (GERD) Hyperthyroidism Migraines ANAND (obstructive sleep apnea) CPAP PTSD (post-traumatic stress disorder) Surgical History Surgical History H/O colposcopy with cervical biopsy H/O prior ablation treatment Hx of cholecystectomy Status post right knee replacement Family History Family History Grandparent Colon cancer Acute myocardial infarction Social History Social History Social History: The patient works here as a [employer]ER. She has 3 children. The youngest 1 lives with her but has been getting ready to get . Patient smokes about half pack a cigarettes a day. She occasionally socially drinks alcohol. She denies any illicit drug use. Patient is a full code she does not have a durable power attorney general for healthcare. The patient is Smoking packs per day: 0.05 Smoking cigarettes per day: 1.0 Years smoked: 48 Smoking pack-years: 2.40 Smoking status: Current every day smoker Tobacco type: cigarettes Alcohol intake: never Substance use: never Substance use type: does not use Living arrangements: alone Gender identity (if verbalized by the patient): Female Sexual Orientation (if Verbalized by the Patient): Straight or Heterosexual Spiritual care concerns: No Anes - Eval Final PreProcedure Day of Procedure 10/21/20 08:10 Patient weight: overweight Heart: regular rate and rhythm Lungs: clear to auscultation and normal air movement Airway: Mallampati scale class 1 Neurological: alert and oriented Last oral intake: >/= 8 hours ASA classification: III Emergent: no Anesthetic plan: proceed Anesthesia type and monitoring: general ETT and standard monitoring Informed Consent: The patient's anesthetic plan and its attendant risks and benefits were discussed with the patient/family/POA. Questions were solicited and answers provided to the satisfaction of the patient/family/POA
--- NOTE | 2020-10-21 10:21 | PM.IMHP ---
H&P: HPI History of Present Illness Date/Time: 10/21/20 10:21 50-year-old female who presents for left thyroid lobectomy. Reports no new changes in her symptoms or medical history. Chief Complaint: left thyroid nodule Review of Systems Constitutional: Constitutional: Denies fatigue, Denies fever(s) and Denies lethargy Eyes: Eyes: Denies blurry vision and Denies change in vision ENT: Reports as per HPI Cardiovascular: Cardiovascular: Denies chest pain Respiratory: Respiratory: Denies cough Endocrine: Endocrine: Denies fatigue Hematologic/Lymphatic: Hematologic/Lymphatic: Denies easy bleeding, Denies easy bruising and Denies lymphadenopathy Allergic/Immunologic: Allergic/Immunologic: Denies seasonal rhinorrhea PMFSH Past Medical History Medical History (Updated 10/21/20 @ 08:11 by Jem Mckeon DO) Anxiety H/O gastroesophageal reflux (GERD) Hyperthyroidism Migraines ANAND (obstructive sleep apnea) CPAP PTSD (post-traumatic stress disorder) Surgical History Surgical History H/O colposcopy with cervical biopsy H/O prior ablation treatment Hx of cholecystectomy Status post right knee replacement Family History Family History Grandparent Colon cancer Acute myocardial infarction Social History Social History Social History: 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 She has 3 children. The youngest 1 lives with her but has been getting ready to get . Patient smokes about half pack a cigarettes a day. She occasionally socially drinks alcohol. She denies any illicit drug use. Patient is a full code she does not have a durable power typewriters functional tester for healthcare. The patient is Smoking packs per day: 0.05 Smoking cigarettes per day: 1.0 Years smoked: 48 Smoking pack-years: 2.40 Smoking status: Current every day smoker Tobacco type: cigarettes Alcohol intake: never Substance use: never Substance use type: does not use Gender identity (if verbalized by the patient): Female Spiritual care concerns: No Meds Home Medications and Allergies Home Medications Medication Instructions Recorded Confirmed Type albuterol sulfate 2 puff INHALATION Q4H PRN 07/12/20 10/16/20 History meloxicam 15 mg PO DAILY 07/12/20 10/16/20 History mirtazapine [Remeron] 7.5 mg PO HS 07/12/20 10/16/20 History prazosin 2 mg PO HS 07/12/20 10/16/20 History rizatriptan 10 mg PO ONCE PRN 07/12/20 10/16/20 History topiramate [Topamax] 200 mg PO BID 07/12/20 10/16/20 History verapamil 240 mg PO DAILY 07/12/20 10/16/20 History aspirin [Children's Aspirin] 81 mg PO DAILY@0800 #0 tablet 07/15/20 10/16/20 Rx alprazolam 0.5 mg tablet 0.5 mg PO TID PRN 10/08/20 10/16/20 History fluoxetine 20 mg capsule 40 mg PO DAILY 10/08/20 10/16/20 History hydrocodone 10 mg-acetaminophen 1 tablet PO QID PRN tablet 10/08/20 10/16/20 History 300 mg tablet tizanidine 4 mg capsule 4 mg PO QID PRN cap 10/08/20 10/16/20 History lidocaine 5 % topical cream 1 applic TOPICAL BID PRN 10/14/20 10/16/20 History mecobalamin (vitamin B12) 1,000 1,000 mcg PO DAILY 10/14/20 10/16/20 History mcg disintegrating tablet,sublingual meloxicam 15 mg tablet 15 mg PO DAILY 10/14/20 10/14/20 History multivitamin with [id number] 1 tablet PO DAILY 10/14/20 10/16/20 History 400 mcg-120 mg tablet Allergies Allergy/AdvReac Type Severity Reaction Status Date / Time lamotrigine [From Lamictal] Allergy Intermediate Hives Verified 10/16/20 13:07 Exam Const: General: cooperative, healthy appearing, comfortable, well developed and alert HENMT: Head: normal to inspection, normocephalic and atraumatic Ears: hearing grossly normal bilaterally, external ears normal, TM's normal bilaterally and EAC's normal General nose exam: Normal external nose present, Normal nares
[2020-10-22] VITALS (11 sets, daily range): BP systolic 98–115; BP diastolic 50–70; PULSE 73–100; RESP 16–18; TEMP 36.6; O2SAT 95–99
--- NOTE | 2020-10-22 06:52 | WPDHPUPDATE1 ---
History and Physical Update Update Date/Time: 10/22/20 06:52 History and Physical has been reviewed, including an updated exam of the patient. There are NO changes in the patient's condition. Risks, benefits, and alternatives have been discussed and questions answered. Patient agrees to proceed with procedure.
[2020-10-22] MEDS: ACETAMINOPHEN 500 MG TABLET 1000 MG PO (06:59)
[2020-10-22] MEDS: LACTATED RINGERS 1,000 ML 30 ML IV CONT ×2 (07:00→10:05)
[2020-10-22] MEDS: ceFAZolin 2 GM/D5W 50 ML 2 GM/50 ML BAG IVPB (08:45)
[2020-10-22] MEDS: LIDO 1%/EPINEPHRINE 1:100,000 50 ML VIAL INFILTRATE (09:13)
--- NOTE | 2020-10-22 10:24 | PM.PROC ---
Procedure Note - Detailed Date of procedure: 10/22/20 Pre-op diagnosis: Left Thyroid Nodule Post-op diagnosis: same Procedure performed: Left thyroid lobectomy with recurrent laryngeal nerve monitoring Description of procedure: The patient was correctly identified and consent was verified in the preoperative holding area. The patient was then brought to the operating room and a time-out was performed. General anesthesia was induced and endotracheal tube with nerve monitoring capabilities was secured the patient's airway and taped in the midline. A surgical incision was then drawn in a relaxed skin tension line approximately 2 cm above the thyroid excuse me 2 cm above the sternal notch. As approximately 5 cm long. 2 cc of 1% lidocaine with 1 100,000 parts epinephrine was then injected deep to the pre drawn surgical incision. The patient was then prepped and draped for the aforementioned procedure. Nerve monitoring was confirmed to be working appropriately. Fifteen blade as was utilized to cut through the epidermis and dermis. Bovie electrocautery at a setting of 15 was utilized to cut through the platysma. Subplatysmal flaps were elevated superiorly as well as inferiorly. The midline raphae a was located between the strap muscles and dissected using blunt dissection as well as Bovie electrocautery. At this time the thyroid capsule as visible. [employer] is were utilized to perform lateral retraction of the strap muscles and pretracheal soft tissue. The thyroid was retracted medially. Dissection was carried out until the superior inferior and middle thyroid vein and blood vessels were all located. These were taking using a Harmonic electrocautery device. Of note a of the left inferior parathyroid gland was noted to be obtaining its blood supply directly from the thyroid gland and I was unable to remove this without disrupting the blood supply. The parathyroid gland was removed and placed You chopped into fine pieces cut into fine pieces and placed in the left sternocleidomastoid muscle. The thyroid was then dissected from the airway using blunt dissection, bipolar electrocautery, as well as a Harmonic electrocautery device. The left thyroid lobe was removed leaving a small portion over the cricothyroid joint. Of note the nerve was identified and confirmed to stimulate during dissection at a setting of 1 and post dissection at a setting of 1 as well as at a setting of 2 in the deep tissue as it was not dissected or visible deep and lateral. Hemostasis was noted to be excellent. The strap muscles were closed superiorly using 3 0 interrupted Vicryl sutures. The platysma was closed again using 3 0 interrupted Vicryl sutures. The skin was closed with a deep dermal or subdermal 4 0 running Monocryl suture. The skin was glued. This marked the end of the procedure. I performed all dictated portions. Care of the patient was turned over to Anesthesiology. Anesthesia: GETA Surgeon: Kameron Mccall MD Estimated blood loss (mL): 5 Drains: No Packing: No Pathology: yes Complications: No immediate complications Condition: stable Disposition: PACU Findings: Firm left thyroid nodule approximately 2 cm No suspicious lymphadenopathy or nodular extension Recurrent laryngeal nerve which stimulated during dissection and post lobectomy
[2020-10-22] MEDS: fentaNYL CITRATE INJ (*CRX) 100 MCG/2 ML VIAL 25 MCG IV PUSH ×4 (10:32→10:48)
== END 2020-10-22 11:40 | disposition home or self-care (01) ==
PROVIDERS: PCP Family Medicine; Visit Provider Otolaryngology
PROC: (CPT 60220; principal; 2020-10-22 08:30)
DX: E04.2 Nontoxic multinodular goiter (principal); G47.33 Obstructive sleep apnea (adult) (pediatric); F41.9 Anxiety disorder, unspecified; F43.10 Post-traumatic stress disorder, unspecified; Z79.82 Long term (current) use of aspirin; F17.210 Nicotine dependence, cigarettes, uncomplicated
CPT/HCPCS: 60220; 88307; 88311; A9270; J0330; J0690; J1100; J1170; J2250; J2405; J2704; J3010; J7120

== ENCOUNTER 2021-01-20 10:50 | Outpatient (CLI) | payer OTHER, SELFPAY ==
[2021-01-20 13:05] LABS: Thyroid Stimulating Hormone Reflex 0.737 uIU/mL (0.465-4.68)
== END 2021-01-20 10:51 | disposition home or self-care (01) ==
PROVIDERS: PCP Family Medicine; Visit Provider Family Medicine
DX: E06.0 Acute thyroiditis (principal)
CPT/HCPCS: 36415; 84443

== ENCOUNTER 2021-06-26 08:51 | Outpatient (CLI) | payer BC, SELFPAY ==
--- NOTE | 2021-06-26 11:00 | NEURO_ITS ---
Impression: # Complains of pain and numbness in hands with nocturnal paresthesia. # Bilateral Carpal Tunnel Syndrome. # No ulnar neuropathy. # Cross innervation of ulnar to median at or below the elbows,normal variation. # Normal needle/EMG exam. Nerve Conduction Studies Anti Sensory Summary Table Stim Site NR Peak (ms) P-T Amp (?V) Site1 Site2 Delta-P (ms) Dist (cm) Donis (m/s) Left Median Anti Sensory (2-3nd Digit) Wrist 3.6 20.3 Wrist 2-3nd Digit 3.6 14.0 39 Wrist 5.8 77.1 Wrist 2-3nd Digit 3.6 14.0 39 Right Median Anti Sensory (2-3nd Digit) Wrist 3.5 18.2 Wrist 2-3nd Digit 3.5 14.0 40 Wrist 4.6 24.9 Wrist 2-3nd Digit 3.5 14.0 40 Left Radial Anti Sensory (Base 1st Digit) Wrist 2.3 4.8 Wrist Base 1st Digit 2.3 0.0 Right Radial Anti Sensory (Base 1st Digit) Wrist 2.3 19.2 Wrist Base 1st Digit 2.3 0.0 Left Ulnar Anti Sensory (5th Digit) Wrist 2.4 34.4 Wrist 5th Digit 2.4 14.0 58 Right Ulnar Anti Sensory (5th Digit) Wrist 2.5 62.4 Wrist 5th Digit 2.5 14.0 56 Motor Summary Table Stim Site NR Onset (ms) O-P Amp (mV) Site1 Site2 Delta-0 (ms) Dist (cm) Donis (m/s) Left Median Motor (Abd Poll Brev) Wrist 4.8 0.6 Elbow Wrist 4.3 29.0 67 Elbow 9.1 2.4 Right Median Motor (Abd Poll Brev) Wrist 3.6 8.3 Elbow Wrist 5.2 28.0 54 Elbow 8.8 6.5 Left Ulnar Motor (Abd Dig Minimi) Wrist 2.3 7.7 A Elbow Wrist 4.8 30.0 63 A Elbow 7.1 6.3 Right Ulnar Motor (Abd Dig Minimi) Wrist 2.5 6.2 A Elbow Wrist 4.9 29.0 59 A Elbow 7.4 5.8 F Wave Studies NR F-Lat (ms) L-R F-Lat (ms) Left Median (Mrkrs) (Abd Poll Brev) 28.19 0.70 Right Median (Mrkrs) (Abd Poll Brev) 27.49 0.70 Left Ulnar (Mrkrs) (Abd Dig Min) 29.22 1.33 Right Ulnar (Mrkrs) (Abd Dig Min) 27.89 1.33 EMG Side Muscle Nerve Root Ins Act Fibs Amp Dur Recrt Comment Right 1stDorInt Ulnar C8-T1 Nml Nml Nml Nml Nml Right Ext Indicis Radial (Post Int) C7-8 Nml Nml Nml Nml Nml Right Ext Digitorum Radial (Post Int) C7-8 Nml Nml Nml Nml Nml Right BrachioRad Radial C5-6 Nml Nml Nml Nml Nml Right PronatorTeres Median C6-7 Nml Nml Nml Nml Nml Right Abd Poll Brev Median C8-T1 Nml Nml Nml Nml Nml Left 1stDorInt Ulnar C8-T1 Nml Nml Nml Nml Nml Left Ext Indicis Radial (Post Int) C7-8 Nml Nml Nml Nml Nml Left Ext Digitorum Radial (Post Int) C7-8 Nml Nml Nml Nml Nml Left BrachioRad Radial C5-6 Nml Nml Nml Nml Nml Left PronatorTeres Median C6-7 Nml Nml Nml Nml Nml Left Abd Poll Brev Median C8-T1 Nml Nml Nml Nml Nml Right ABD Dig Min Ulnar C8-T1 Nml Nml Nml Nml Nml Right Abd Poll Long Radial (Post Int) C7-8 Nml Nml Nml Nml Nml Left ABD Dig Min Ulnar C8-T1 Nml Nml Nml Nml Nml Left Abd Poll Long Radial (Post Int) C7-8 Nml Nml Nml Nml Nml MTDD
== END 2021-06-26 08:52 | disposition home or self-care (01) ==
LOC: ANHNEURO 08:55
PROVIDERS: PCP Family Medicine; Visit Provider Psychiatry & Neurology Neurology
DX: R20.0 Anesthesia of skin (principal); G56.03 Carpal tunnel syndrome, bilateral upper limbs
CPT/HCPCS: 95886; 95911

== ENCOUNTER 2022-12-23 08:19 | Outpatient (CLI) | payer OTHER, SELFPAY ==
--- NOTE | 2023-01-11 15:37 | WPDHOMESLEEP ---
Sleep Study - Home Unattended Date of Study: 12/23/22 Ordering Provider: Marcelina Mercado, Interpreting Provider: Maribell Morejon, DO Home Sleep Study Type: Watch PAT Height: 1.65 m Weight: 76.204 kg Body Mass Index: 27.9 Neck Circumference (inches): 14.25 [place]: 16 Reason for Sleep Study History of ANAND. [facility] Machine was recalled but never replaced. Sleep History The patient is a 52-year-old female with PTSD, depression, GERD, polyarthralgia, migraine, ANAND and current tobacco use that had a sleep study ordered by her primary care to requalify for PAP therapy. The patient frequently awakens from sleep short of breath. She constantly awakens at night with heartburn, belching or cough. She constantly snores loudly enough that others complain. She occasionally has trouble sleeping when she has a cold. She constantly wakes up gasping for air throughout the night. She constantly has breathing problems at night observed by herself or others. She constantly sweats excessively at night. She rarely has heart palpitations or irregular heartbeats during the night. She constantly falls asleep during the day. she occasionally falls asleep while driving. She occasionally experiences loss of muscle tone when extremely emotional. She frequently has trouble at school or work due to sleepiness. She constantly feels unable to move while waking up or falling asleep. She constantly experiences vivid dreamlike scenes upon awakening or falling asleep. She constantly feels afraid of going to sleep. She constantly has nightmares and occasionally remembers her dreams. She constantly has thoughts racing through her mind. She occasionally feels sad or depressed. She constantly has anxiety. She constantly has muscular tension. She constantly notices parts of her body jerk. She constantly kicks during the night. She constantly has crawling and aching feelings in her legs and constantly has leg pain during the night. She constantly grinds her teeth during sleep and constantly awakens with morning jaw pain. She is constantly bothered by pain during the day and constantly awakened by pain during the night. She constantly wakes up feeling stiff in the morning. She constantly wakes up with sore or achy muscles. She constantly wakes up with pain in the neck, spine or other joints. She goes to bed at 2:00 a.m. on both weekdays and weekends. It takes her 1 hour to fall asleep. She wakes up 4 times throughout the night for unknown reasons. When she awakens, she will work around the house and will take an hour for her to fall back asleep. She wakes up at 8:00 a.m. on both weekdays and weekends. She typically gets 2 hours of sleep per night. She does not stay in bed after waking up in the morning. She currently lives alone. She does not consume any caffeinated beverages within 2 hours of bedtime. She does not engage in physical exercise before bedtime. She will occasionally before falling asleep. She will watch television before falling asleep. She will take naps afternoon or the evening they are occasionally refreshing. She drinks 1 pot of coffee per day. She currently consumes alcohol socially. She smokes half a pack of cigarettes per day. She denies recreational drug use. [facility] Past Medical History Medical History Anxiety Arthritis H/O gastroesophageal reflux (GERD) Hyperthyroidism Migraines ANAND (obstructive sleep apnea) CPAP PTSD (post-traumatic stress disorder) Surgical History Surgical History H/O colposcopy with cervical biopsy H/O prior ablation treatment History of colonoscopy 07/14/21 History of partial thyroidectomy 10/07/20 Hx of cholecystectomy Status post right knee replacement Family History Family History Grandparent Colon
[2023-01-11 15:47] VITALS: BMI 27.9
== END 2022-12-25 10:41 | disposition home or self-care (01) ==
PROVIDERS: PCP Family Medicine; Visit Provider Family Medicine
DX: G47.30 Sleep apnea, unspecified (principal)
CPT/HCPCS: 95800

== ENCOUNTER 2024-06-02 17:59 | Observation (INO) | payer OTHER, SELFPAY ==
[2024-06-02] VITALS (29 sets, daily range): BP systolic 111–131; BP diastolic 60–86; PULSE 68–98; RESP 12–20; TEMP 36.1; O2SAT 90–100; BMI 31.3
--- NOTE | ~2024-06-02 | CT_ITS ---
CT brain wo con Ordering provider: Shad Lucero MD History: 53 years Female with . AMS/Stroke . Comparison: July 12, 2020 Technique: CT of the head without contrast. Radiation reduction technique utilized. The dose-length product was 605.33 mGy-cm. FINDINGS: BRAIN PARENCHYMA AND CSF SPACES: No midline shift, mass effect or hemorrhage. The brain parenchyma a nd CSF spaces are otherwise normal. VISUALIZED PARANASAL SINUSES: Well aerated. MASTOIDS: Well aerated. BONES: The bones appear intact. SOFT TISSUES: Visualized nasopharynx is normal. Superficial soft tissues are normal. IMPRESSION: No acute intracranial findings. Reviewed, dictated and finalized at location A.
--- NOTE | ~2024-06-02 | XR_ITS ---
XR chest 1V portable Ordering provider: Shad Lucero MD History: 53 years Female with . AMS . Comparison: May 15, 2020 FINDINGS: MEDIASTINUM: The cardiac silhouette is slightly enlarged. LUNGS: No effusions or pneumothorax. Opacification in the left lower lobe area is seen suggestive of atelectasis versus pneumonia. Interstitial changes seen bilaterally suggestive of cardiac decompensat ion. OTHER: No free air under the diaphragm. IMPRESSION: Left lower lobe pneumonia. Highly suggestive pulmonary edema. Underlying fibrotic changes is not excluded. Reviewed, dictated and finalized at location A.
--- NOTE | ~2024-06-02 | XR_ITS ---
XR chest 2V Ordering provider: Shad Lucero MD History: 53 years Female with . pna . Comparison: June 02, 2024 FINDINGS: MEDIASTINUM: The cardiac silhouette is not enlarged. Congestive mathew. LUNGS: No effusions or pneumothorax. Bilateral interstitial changes with infiltrates, more in the lef t lower lobe OTHER: No free air under the diaphragm. Kyphosis centered in the lower thoracic area with multiple ve rtebrae loss of height most likely chronic in nature. IMPRESSION: Bilateral pneumonia more on the left side. Underlying pulmonary edema versus fibrotic changes cannot be excluded. Reviewed, dictated and finalized at location A. IMPRESSION: Bilateral pneumonia more on the left side. Underlying pulmonary edema versus fi brotic changes cannot be excluded.
--- NOTE | 2024-06-02 18:00 | ECG_ITS ---
Test Date: 2024-06-02 18:18:07 Measurements Intervals [place] Rate: 75 P: 57 HI: 145 QRS: 15 QRSD: 89 T: 31 QT: 383 QTc: 428 Interpretive Statements SINUS RHYTHM NORMAL ECG No previous ECG available for comparison Electronically Signed On 06-03-2024 13:20:00 CDT by José Mcneill M.D.
--- NOTE | 2024-06-02 18:05 | ED_ITS ---
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 She typically takes a different type of THC and this is a different strain and variety. Last known well at 4:30 p.m.. Her daughter was present. She started to have a PTSD event and a mixture with the Delta 8 THC onset. Per the daughter. She hit the emergency room at 6:[address] scan was done at 6:[address] scan of the brain was negative for acute process. Initial NIH wa s 14. About 10-12 minutes later she decided to wake up and have no further symptoms. NIH at 6:36 p.m. was 0. She has had similar PTSD issues in the past with catatonia like changes per the daughter. This 1 was much worse secondary to intake of delta 8 per the family. MD complaint: altered mental status, confusion, decreased responsiveness, intoxication and weakness Onset (ago): hour(s) (2) Time: 04:30 Timing confirmed by: family member Severity: severe Consistency of symptoms: constant Context: drug abuse ( delta 8 THC) and other ( posttraumatic stress disorder) Associated symptoms: malaise, weakness and difficulty walking Treatments prior to arrival: glucose ( 118) Related Data Home Medications Medication Instructions Recorded Confirmed meloxicam 15 mg tablet 15 mg PO DAILY 07/12/20 06/02/24 alprazolam 0.5 mg tablet 0.5 mg PO TID PRN Anxiety 10/08/20 06/02/24 hydrocodone 10 mg-acetaminophen 1 tablet PO QID PRN Headache 10/08/20 06/02/24 300 mg tablet aripiprazole 20 mg tablet 10 mg PO DAILY 06/02/24 06/02/24 famotidine 40 mg tablet 40 mg PO DAILY 06/02/24 06/02/24 paroxetine mesylate 20 mg PO DAILY 06/02/24 06/02/24 paroxetine mesylate 30 mg PO DAILY 06/02/24 06/02/24 prednisone 10 mg tablet 10 mg PO USEASDIRECTD 06/02/24 06/02/24 pregabalin 225 mg capsule 225 mg PO BID 06/02/24 06/02/24 quetiapine 25 mg PO USEASDIRECTD 06/02/24 06/02/24 Allergies Allergy/AdvReac Type Severity Reaction Status Date / Time lamotrigine [From Lamictal] Allergy Intermediate Hives Verified 06/02/24 18:15 Review of Systems Review of Systems: All systems reviewed & are unremarkable except as noted in HPI and below Constitutional: Constitutional: Reports no additional constitutional complaints Eyes: Eyes: Reports no additional eye complaints ENT: Reports system reviewed and no additional complaints, except as documented Cardiovascular: Cardiovascular: Reports no additional cardiovascular complaints Respiratory: Respiratory: Reports no additional respiratory complaints Gastrointestinal: Gastrointestinal: Reports no additional gastrointestinal complaints Genitourinary: Genitourinary: Reports no additional female genitourinary complaints Musculoskeletal: Musculoskeletal: Reports no additional musculoskeletal complaints Integumentary/Breasts: Skin/Breast: Reports system reviewed and no additional complaints, except as docu Neurologic: Reports system reviewed and no additional complaints, except as documented Psychiatric: Psychiatric: Reports no additional psychiatric complaints Endocrine: Endocrine: Reports no additional endocrine complaints Hematologic/Lymphatic: Hematologic/Lymphatic: Reports no additional hematologic/lymphatic complaints Allergic/Immunologic: Allergic/Immunologic: Reports no additional allergic/immunologic complaints PMFSH Past Medical History Medical History Anxiety Arthritis H/O gastroesophageal reflux (GERD) Hyperthyroidism Migraines ANAND (obstructive sleep apnea) CPAP PTSD (post-traumatic stress disorder) Surgical History Surgical History H/O colposcopy with cervical biopsy H/O prior ablation treatment History of colonoscopy 07/14/21 History of partial thyroidectomy 10/07/20 Hx of cholecystectomy Status post right knee replacement Family History Family History Grandparent Colon cancer Acute myocardial infarction Social History Social History Social History: 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 She has 3 children. The youngest 1 lives with her but has been getting ready to get . Patient smokes about half pack a cigarettes a day. She occasionally socially drinks alcohol. She denies any illicit drug use. Patient is a full code she does not have a durable power project management analyst for healthcare. The patient is Smoking packs per day: 0.05 Smoking cigarettes per day: 1.0 Years smoked: 48 Smoking pack-years: 2.40 Smoking status: Current every day smoker Tobacco type: cigarettes Alcohol intake: never Substance use: never Substance use type: does not use Living arrangements: alone Gender identity (if verbalized by the patient): Female Sexual Orientation (if Verbalized by the Patient): Straight or Heterosexual Spiritual care concerns: No Exam Const: General: no acute distress Nutritional Appearance: well nourished Orientation/consciousness: No patient oriented x3 ( AAO x2) Limitations: altered mental status HENMT: Head: normal to inspection Ears: external ears normal Face/Nose/Sinus: Normal external nose present Eyes: Conjunctivae: conjunctivae normal Pupils: Equal, round and reactive pupils present EOM: EOMs intact bilaterally Neck: Neck: normal visual inspection Chest: Chest palpation & inspection: normal inspection of the chest Resp: Effort & Inspection: normal respiratory effort and not labored Auscultation: clear to auscultation bilaterally and no crackles Cardio: Rate: regular rate Rhythm: regular rhythm Heart sounds: no murmurs GI: Inspection: non-distended GI Palp: Yes Soft to palpation and No Tenderness to palpation present (GI) Auscultation: normal bowel sounds : General: Yes bladder normal to palpation Back/Spine/Pelvis: Back: no CVA tenderness Skin: General skin exam: normal color Rashes: no rashes Wounds: no wounds Neuro: General: No patient oriented x3, No moves all extremities, no meningeal signs, No no focal motor deficits and No CN's II-XI intact bilaterally Cranial nerves: Yes Nystagmus present Speech: Abnormal speech present Gait exam (Neuro): gait abnormal Other: initial NIH was 14 and repeat NIH was 0 after patient awoke from her catatonia type state fast exam initially was questionable positive due to the catatonia type changes [place] coma Score was initially 12 and repeat was 15 Extrem: General: normal to inspection Psych: Mental Status: mental status grossly abnormal Affect: No normal affect Attitude: cooperative Other: patient presents with a generalized weakness and catatonia type change; she was initially thought to be a stroke patient /TIA but after hearing about the posttraumatic stress changes and the psychological problems he has had in the past as well as the Delta 8 intake with 1-1/2 hour proximity to the symptoms this appears more to be altered mental status due to psychiatric and intoxication with delta 8 THC; most findings were bilateral and non correlated of stroke-like changes Course Vital Signs Vital signs: Vital Signs Pulse Rate 75 06/02/24 17:59 Respiratory Rate 16 06/02/24 17:59 Blood Pressure 125/77 06/02/24 17:59 Pulse Oximetry 96 06/02/24 17:59 Oxygen Delivery Room Air 06/02/24 17:59 Temperature 36.1 C L 06/02/24 18:05 Pulse Rate 96 06/02/24 19:46 Respiratory Rate 18 06/02/24 19:46 Blood Pressure 111/70 06/02/24 19:45 Pulse Oximetry 98 06/02/24 19:31 Oxygen Delivery Room Air 06/02/24 18:05 MDM - Altered Mental Status MDM Narrative Medical decision making narrative: patient is a 53-year-old female with altered mental status and catatonia with psychiatric issues and questionable stroke changes. We will do a stroke workup this time. not a tPA candidate at this time due to the fact that she is NIH is 0. Patient has had no problems during her hospitalization ER visit. Once she became NIH of 0, she continued to stay NIH of 0 and no measurable neurological deficits. Patient's final urinalysis shows amphetamines and cannabis. She does not have amphetamines on her home medication list. She does not have any symptoms of pneumonia at this time and likely atelectasis is on the chest x-ray. Further information from the patient and discussing the amphetamine positive, she said she got the gummies of delta [address] and it was an open package. Did not get this from the grocery store. She declines other drug use. She appears to be having some recurrent symptoms of the intoxication. We will wait for the chest x-ray and further discuss admitting her for the night so she can sleep and finish the intoxication under medical management. After review of the chest x-ray in reviewing with the patient of intoxication, we will go ahead and admit the patient observation overnight to get her IV antibiotics for the pneumonia bilaterally and monitor her intoxication overnight. as an aside, patient is very hard to arouse when she is sleeping. The daughter said this is a normal variant. Lab Data Attestation: I reviewed the patient's lab results. 06/02/24 18:03 06/02/24 18:03 Labs: Lab Results 06/02/24 06/02/24 06/02/24 Range/Units 18:03 20:22 20:23 WBC 7.9 (4.8-10.8) K/mm3 RBC 3.83 L (4.20-5.40) M/mm3 Hgb 11.1 L (12.0-15.0) g/dL Hct 33.7 L (35.0-49.0) % MCV 88.0 (78.0-102.0) fL MCH 29.0 (27.0-31.0) pg MCHC 32.9 (32-36) g/dL RDW 13.0 (11.6-14.4) % Plt Count 328 (150-420) K/mm3 MPV 10.4 (9.2-11.8) fl Immature Gran % (Auto) 0.8 H (0.0-0.0) % Neut % (Auto) 78.8 H (50.0-70.0) % Lymph % (Auto) 15.0 L (18.0-42.0) % [place] % (Auto) 4.8 (2.0-11.0) % Eos % (Auto) 0.3 L (1.0-6.0) % Baso % (Auto) 0.3 (0.0-1.0) % Lymph # (Auto) 1.18 (1.10-4.50) K/mm3 [place] # (Auto) 0.38 (0.10-0.90) K/mm3 Eos # (Auto) 0.02 (0.02-0.50) K/mm3 Baso # (Auto) 0.02 (0.00-0.10) K/mm3 Abs Immat Gran (auto) 0.06 H (0.00-0.00) K/mm3 Absolute Neuts (auto) 6.22 (1.70-7.20) K/mm3 Absolute Nucleated RBC 0.00 (0.00-0.00) K/mm3 Nucleated RBC % 0.0 (0-0.0) % PT 9.8 (9.50-12.1) Seconds INR 0.9 APTT 24.7 (23.9-30.70) Sec Sodium 140 (136-145) mmol/L Potassium 4.6 (3.5-5.1) mmol/L Chloride 103 (98-108) mmol/L Carbon Dioxide 28 (21-32) mmol/L Anion Gap 9 (4-12) mmol/L BUN 20 H (7-18) mg/dL Creatinine 0.87 (0.55-1.02) mg/dL Estim Creat Clear Calc Not Reportable Estimated GFR > 60 (59 - ) Glucose 140 H (70-99) mg/dL Calculated Osmolality 294 (285-295) mOsm/kg Lactic Acid 0.6 (0.4-2.0) mmol/L Calcium 9.1 (8.5-10.1) mg/dL Total Bilirubin 0.2 (0.00-1.00) mg/dL AST 15 (15-37) U/L ALT 18 (14-59) U/L Alkaline Phosphatase 93 (46-116) U/L Troponin I < 4.0 (0.00-60.4) ng/L Total Protein 7.4 (6.4-8.2) g/dL Albumin 3.3 L (3.4-5.0) g/dL TSH 0.37 (0.36-3.74) uIU/mL Urine Color Yellow (Yellow) Urine Appearance Clear (Clear) Urine pH 6.0 (5.0-8.0) Ur Specific [place] >= 1.030 H (1.010-1.020) Urine Protein Trace H (Negative) Urine Glucose (UA) Negative (Negative) Urine Ketones Negative (Negative) Ur Blood (Man) 1+ H (Negative) Urine Nitrate Negative (Negative) Urine Bilirubin Negative (Negative) Urine Urobilinogen 0.2 (0.2-1.0) mg/dL Leukocyte Esterase Rfl Negative (Negative) ELENI/UL Urine RBC 0-2 (0-2) /hpf Urine WBC 0-3 (0-3) /hpf Ur Squamous Epith Cells Few (Few) /hpf Urine Bacteria Trace (None) /hpf Urine Mucus Few H /lpf Salicylates 3.7 (2.8-20.0) mg/dL Urine Opiates Screen Negative (Negative) Urine Methadone Screen Negative (Negative) Acetaminophen < 2 L (10-30) ug/mL Ur Barbiturates Screen Negative (Negative) Ur Phencyclidine Scrn Negative (Negative) Ur Amphetamine Screen Positive A (Negative) U Benzodiazepines Scrn Negative (Negative) Urine Cocaine Screen Negative (Negative) U Cannabinoids Screen Positive A (Negative) Ethyl Alcohol < 3 (0-6) mg/dL Imaging Data Attestation: I personally reviewed and interpreted this imaging study as follows: Radiologist's impression: Chest x-ray does show a left lower lobe pneumonia versus atelectasis CT scan of the head was negative for acute process Repeat chest x-ray PA and lateral shows bilateral lower lobe pneumonia; left greater than right ECG Data EKG #1: Attestation: I personally reviewed and interpreted this ECG as follows: ECG completion date: 06/02/24 ECG completion time: 18:52 EKG Interpretation: normal rate, sinus rhythm, no ectopy, non-specific ST changes, normal QRS, normal QT and NL axis Critical Care Time Critical Care Time Critical Care Time: Yes Total Critical Care Time: 25 Discharge Plan Discharge Clinical Impression: Pneumonia, Tetrahydrocannabinol (THC) dependence, Acute alteration in mental status, Amphetamine abuse Patient Disposition: Acute Care Hospital [facility] Condition: Stable Prescriptions: No Action prednisone 10 mg tablet 10 mg PO USEASDIRECTD Rx Instructions: 4 tablets x 4 days, 3 tablets x 3 days, 2 tablets x 2 days, 1 tablet on last day famotidine 40 mg tablet 40 mg PO DAILY aripiprazole 20 mg tablet 10 mg PO DAILY pregabalin 225 mg capsule 225 mg PO BID paroxetine mesylate 20 mg PO DAILY paroxetine mesylate 30 mg PO DAILY quetiapine 25 mg PO USEASDIRECTD Rx Instructions: 1/2 to 1 tablet as needed hydrocodone-acetaminophen 10-300 mg tablet 1 tablet PO QID PRN (Reason: Headache) alprazolam 0.5 mg tablet 0.5 mg PO TID PRN (Reason: Anxiety) meloxicam 15 mg Tablet 15 mg PO DAILY Follow-up/Referrals: UNKNOWN,DOCTOR [Non-Staff] - Time of Disposition: 22:15
[2024-06-02 18:11] LABS: Basophils Absolute Auto 0.02 K/mm3 (0.00-0.10); Basophils Percent Auto 0.3 % (0.0-1.0); Eosinophils Absolute Auto 0.02 K/mm3 (0.02-0.50); Eosinophils Percent Auto 0.3 % (1.0-6.0); Hematocrit 33.7 % (35.0-49.0); Hemoglobin 11.1 g/dL (12.0-15.0); Immature Granulocyte Absolute 0.06 K/mm3 (0.00-0.00); Immature Granulocyte Percent A 0.8 % (0.0-0.0); Lymphocytes Absolute Auto 1.18 K/mm3 (1.10-4.50); Mean Corpuscular HGB Conc 32.9 g/dL (32-36); Mean Platelet Volume 10.4 fl (9.2-11.8); Monocytes Absolute Auto 0.38 K/mm3 (0.10-0.90); Monocytes Percent Auto 4.8 % (2.0-11.0); Neutrophils Absolute Auto 6.22 K/mm3 (1.70-7.20); Neutrophils Percent Auto 78.8 % (50.0-70.0); Platelet Count Result 328 K/mm3 (150-420); Red Blood Count 3.83 M/mm3 (4.20-5.40); White Blood Count 7.9 K/mm3 (4.8-10.8)
--- NOTE | 2024-06-02 18:15 | PC.NURSE ---
Gave pt's daughter, Augusta, pt's iwatch and glasses.
[2024-06-02 18:20] LABS: INR 0.9; Partial Thromboplastin Time 24.7 Sec (23.9-30.70); Prothrombin Time 9.8 Seconds (9.50-12.1)
[2024-06-02 18:28] LABS: Lactic Acid Reflex 0.6 mmol/L (0.4-2.0)
[2024-06-02 18:37] LABS: Acetaminophen < 2 ug/mL (10-30); Alanine Aminotransferase 18 U/L (14-59); Albumin Level 3.3 g/dL (3.4-5.0); Alkaline Phosphatase 93 U/L (46-116); Anion Gap 9 mmol/L (4-12); Aspartate Amino Transferase 15 U/L (15-37); Bilirubin,Total 0.2 mg/dL (0.00-1.00); Blood Urea Nitrogen 20 mg/dL (7-18); Calcium 9.1 mg/dL (8.5-10.1); Carbon Dioxide 28 mmol/L (21-32); Chloride 103 mmol/L (98-108); Estimated Glomerular Filt Rate > 60; Ethanol < 3 mg/dL (0-6); Glucose 140 mg/dL (70-99); Osmolality Calculated 294 mOsm/kg (285-295); Potassium 4.6 mmol/L (3.5-5.1); Sodium 140 mmol/L (136-145); Total Protein 7.4 g/dL (6.4-8.2)
[2024-06-02 18:38] LABS: Salicylate 3.7 mg/dL (2.8-20.0); Thyroid Stimulating Hormone 0.37 uIU/mL (0.36-3.74); Troponin I < 4.0 ng/L (0.00-60.4)
--- NOTE | 2024-06-02 18:40 | PC.NURSE ---
1825: NIHSS performed by ERP and RNAileen, score 14. At 1836 pt sat up and said, Wow. What happened. Pt was completely coherent. All previous symptoms had resolved. NIHSS was repeated and pt score was 0. Daughter reports that pt has a hx of PTSD and has had similar catatonic episodes in the past, which eventually resolve themselves.
[2024-06-02] MEDS: SODIUM CHLORIDE 0.9% IV 1,000 ML 999 ML IV CONT (18:49)
[2024-06-02 20:27] LABS: Add Urine Microscopic? YES; Appearance Urine Clear (Clear); Bilirubin Urine Negative (Negative); Blood Urine 1+ (Negative); Color Urine Yellow (Yellow); Glucose Urine UA Negative (Negative); Ketones Urine Negative (Negative); Leukocyte Esterase Ur Negative LEU/UL (Negative); Nitrate Urine Negative (Negative); Protein Urine Trace (Negative); Specific Grav Ur >= 1.030 (1.010-1.020); Urobilinogen Urine 0.2 mg/dL (0.2-1.0)
[2024-06-02 20:31] LABS: RBC Urine 0-2 /hpf (0-2); Squamous Epithelial Cell Urine Few /hpf (Few); WBC Urine 0-3 /hpf (0-3)
[2024-06-02 20:32] LABS: Bacteria Urine Trace /hpf; Mucus Urine Few /lpf
[2024-06-02 20:33] LABS: Amphetamine Screen Urine Positive (Negative); Barbiturate Screen Urine Negative (Negative); Benzodiazepines Screen Urine Negative (Negative); Cannabinoid Screen Urine Positive (Negative); Cocaine Screen Urine Negative (Negative); Methadone Screen Urine Negative (Negative); Opiate Screen Urine Negative (Negative); Phencyclidine Screen Urine Negative (Negative)
--- NOTE | 2024-06-02 22:11 | PC.NURSE ---
Spoke to pt's daughter, Augusta. Told her ERP is admitting pt overnight for IV antibiotics for her pneumonia diagnosis.
[2024-06-02] MEDS: levoFLOXacin 750 MG/D5W 150 ML 750 MG/150 ML BAG 100 MG IVPB (22:41)
[2024-06-02] MEDS: SODIUM CHLORIDE 0.9% IV 1,000 ML 150 ML IV CONT (23:52)
[2024-06-03] VITALS: BP 100/60; PULSE 70; RESP 14; TEMP 36.2; O2SAT 93
--- NOTE | 2024-06-03 00:37 | ADMGEN ---
This patient, Cedric Castrejon, was admitted to 2nd Floor Room 210-1. Patient/family oriented to hospital policies and general routines including ID bracelet, bed and alarms, visiting hours, pain management, procedures, bathroom and other care routines, personal items, smoking policy, room service/diet, and visiting hours. Pt is drowsy, will answer questions appropriately but falling asleep between questions Information on how to activate the Rapid Response Team has been discussed. Patient/Family are encouraged to report perceived risks to care and to ask questions if they do not understand what they are told or what they should do.
--- NOTE | 2024-06-03 02:45 | PC.NURSE ---
Assumed care. Report received from Ghazala MCKNIGHT
[2024-06-03 04:00] VITALS: BP 103/50; PULSE 67; RESP 18; TEMP 36.3; O2SAT 100
[2024-06-03 05:24] LABS: Basophils Absolute Auto 0.08 K/mm3 (0.00-0.10); Basophils Percent Auto 0.9 % (0.0-1.0); Eosinophils Absolute Auto 0.14 K/mm3 (0.02-0.50); Eosinophils Percent Auto 1.5 % (1.0-6.0); Hematocrit 29.3 % (35.0-49.0); Hemoglobin 9.5 g/dL (12.0-15.0); Immature Granulocyte Absolute 0.03 K/mm3 (0.00-0.00); Immature Granulocyte Percent A 0.3 % (0.0-0.0); Lymphocytes Absolute Auto 3.77 K/mm3 (1.10-4.50); Lymphocytes Percent Auto 41.7 % (18.0-42.0); Mean Corpuscular HGB Conc 32.4 g/dL (32-36); Mean Corpuscular Hemoglobin 29.1 pg (27.0-31.0); Mean Corpuscular Volume 89.9 fL (78.0-102.0); Mean Platelet Volume 10.1 fl (9.2-11.8); Monocytes Absolute Auto 0.47 K/mm3 (0.10-0.90); Monocytes Percent Auto 5.2 % (2.0-11.0); Neutrophils Absolute Auto 4.55 K/mm3 (1.70-7.20); Neutrophils Percent Auto 50.4 % (50.0-70.0); Platelet Count Result 269 K/mm3 (150-420); Red Blood Count 3.26 M/mm3 (4.20-5.40); Red Cell Distribution Width 13.2 % (11.6-14.4)
[2024-06-03 05:44] LABS: Lactic Acid Reflex 0.8 mmol/L (0.4-2.0)
[2024-06-03 05:51] LABS: Alanine Aminotransferase 17 U/L (14-59); Albumin Level 2.5 g/dL (3.4-5.0); Alkaline Phosphatase 77 U/L (46-116); Anion Gap 6 mmol/L (4-12); Aspartate Amino Transferase 18 U/L (15-37); Bilirubin,Total 0.1 mg/dL (0.00-1.00); Blood Urea Nitrogen 14 mg/dL (7-18); Calcium 8.2 mg/dL (8.5-10.1); Carbon Dioxide 30 mmol/L (21-32); Chloride 107 mmol/L (98-108); Estimated CRCL calculation 83 ml/min; Estimated Glomerular Filt Rate > 60; Glucose 82 mg/dL (70-99); Osmolality Calculated 295 mOsm/kg (285-295); Potassium 3.9 mmol/L (3.5-5.1); Sodium 143 mmol/L (136-145); Total Protein 5.9 g/dL (6.4-8.2)
[2024-06-03] MEDS: SODIUM CHLORIDE 0.9% IV 1,000 ML 150 ML IV CONT (06:32)
--- NOTE | 2024-06-03 07:00 | PC.NURSE ---
report given to darrell jerry
[2024-06-03 07:58] VITALS: BP 91/59; PULSE 70; PULSE 73; RESP 16; TEMP 36.3; O2SAT 95
--- NOTE | 2024-06-03 09:06 | P.SS_ITS ---
Same Day Admit/Disch: HPI History of Present Illness Chief complaint: AMS Narrative: patient was a 53-year-old female who presented to the emergency department via EMS after daughter found patient to altered mental status and was having difficulty moving certain extremities. patient reports she gotten a new delta 8 THC gummy which she takes at night for sleep aid and for her PTSD. per medical record patient's daughter reported patient had increasing altered mental status with confusion and episodes of unresponsiveness prior to arrival. upon arrival to the emergency department patient had immediate CT scan which was negative for acute process, patient was given IV fluids which she responded to patient symptoms resolved on with no neurological deficits. Patient does have a history of anxiety, PTSD, migraines, and ANAND. chest x-ray was performed which showed pneumonia patient was admitted to the medical unit for further observation and treatment of intoxication ammonia. 06/03/2024: patient seen and assessed in no acute distress patient with no neurological deficits moving all extremities appropriately and answering all questions. Patient was alert and oriented denied any chest pain, shortness of breath, nausea, vomiting, fever, chills, dizziness, or loss of vision. patient states that she tried a new form THC gummy I did however informed patient that she did test positive for amphetamines in her toxicology report she is unaware where the amphetamines could have came from. patient did receive IV Levaquin in the emergency department pneumonia she did report she was having productive cough which she thought was just from her smoking. patient with overall improvement symptoms following morning. Patient was discharged home on oral antibiotics for pneumonia as well as provided incentive spirometer to use I encourage patient on smoking cessation as well substance cessation. 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 She has 3 children. The youngest 1 lives with her but has been getting ready to get . Patient smokes about half pack a cigarettes a day. She occasionally socially drinks alcohol. She denies any illicit drug use. Patient is a full code she does not have a durable power estate attorney for healthcare. The patient is Smoking packs per day: 0.05 Smoking cigarettes per day: 1.0 Years smoked: 48 Smoking pack-years: 2.40 Smoking status: Current some day smoker Tobacco type: cigarettes Second hand tobacco smoke exposure: Yes Alcohol intake: unknown Substance use: current Substance use type: marijuana Do You Feel Safe in your Home?: Yes Lack of Transportation: No Lack of Food: Never True Current Housing: I Have Housing Concerned About Future Housing: No Difficulty Paying Gas/Electric Bills: No Difficulty Paying for Meds: No Currently Unemployed: No Education: Trade/Vocational Certificate Difficulty w/ Childcare or Family Care: No Living arrangements: alone Gender identity (if verbalized by the patient): Female Sexual Orientation (if Verbalized by the Patient): Straight or Heterosexual Spiritual care concerns: No Same Day Admit/Disch: Med Pre-admit Medications Home Medications Medication Instructions Recorded Confirmed Type meloxicam 15 mg tablet 15 mg PO DAILY 07/12/20 06/02/24 History alprazolam 0.5 mg tablet 0.5 mg PO TID PRN Anxiety 10/08/20 06/02/24 History hydrocodone 10 mg-acetaminophen 1 tablet PO QID PRN Headache 10/08/20 06/02/24 History 300 mg tablet aripiprazole 20 mg tablet 10 mg PO DAILY 06/02/24 06/02/24 History famotidine 40 mg tablet 40 mg PO DAILY 06/02/24 06/02/24 History paroxetine mesylate 20 mg PO DAILY 06/02/24 06/02/24 History paroxetine mesylate 30 mg PO DAILY 06/02/24 06/02/24 History prednisone 10 mg tablet 10 mg PO USEASDIRECTD 06/02/24 06/02/24 History pregabalin 225 mg capsule 225 mg PO BID 06/02/24 06/02/24 History quetiapine 25 mg PO USEASDIRECTD 06/02/24 06/02/24 History amoxicillin 875 mg-potassium 1 tablet PO Q12H #5 tabs 06/03/24 Rx clavulanate 125 mg tablet azithromycin 250 mg tablet See Rx Instructions PO .COMPLEX #6 06/03/24 Rx tabs guaifenesin 200 mg tablet 200 mg PO QID PRN cough #30 tabs 06/03/24 Rx Review of Systems Review of Systems All systems reviewed & are unremarkable except as noted in HPI and below Exam Narrative: * GENERAL: Alert and oriented x 3. No acute distress. * EYES: EOMI. No scleral icterus. PERRLA. * HEENT: Moist mucous membranes. * LUNGS: Wheezing throughout but diminished on auscultation bilaterally. No accessory muscle use. * CARDIOVASCULAR: Regular rate and rhythm. No murmur. No JVD. S1-S2 * ABDOMEN: Soft, non tenderness and non-distended. No palpable masses. * EXTREMITIES: No edema. Non-tender * SKIN: No rashes or lesions. Skin warm, dry. * NEUROLOGIC: No focal neurological deficits. CN II-XII grossly intact * PSYCHIATRIC: Appropriate mood and affect. Good judgement and insight. No visual or auditory hallucinations. No suicidal or homicidal ideation. DS: Data Data Completed and Pending Labs on day of discharge: Labs from last 24 hours 06/03/24 06/02/24 06/02/24 05:18 20:23 20:22 WBC 9.0 RBC 3.26 L Hgb 9.5 L Hct 29.3 L MCV 89.9 MCH 29.1 MCHC 32.4 RDW 13.2 Plt Count 269 MPV 10.1 Immature Gran % (Auto) 0.3 H Neut % (Auto) 50.4 Lymph % (Auto) 41.7 [place] % (Auto) 5.2 Eos % (Auto) 1.5 Baso % (Auto) 0.9 Lymph # (Auto) 3.77 [place] # (Auto) 0.47 Eos # (Auto) 0.14 Baso # (Auto) 0.08 Abs Immat Gran (auto) 0.03 H Absolute Neuts (auto) 4.55 Absolute Nucleated RBC 0.00 Nucleated RBC % 0.0 PT INR APTT Sodium 143 Potassium 3.9 Chloride 107 Carbon Dioxide 30 Anion Gap 6 BUN 14 Creatinine 0.73 Estim Creat Clear Calc 83 Estimated GFR > 60 Glucose 82 Calculated Osmolality 295 Lactic Acid 0.8 Calcium 8.2 L Total Bilirubin 0.1 AST 18 ALT 17 Alkaline Phosphatase 77 Troponin I Total Protein 5.9 L Albumin 2.5 L TSH Urine Color Yellow Urine Appearance Clear Urine pH 6.0 Ur Specific [place] >= 1.030 H Urine Protein Trace H Urine Glucose (UA) Negative Urine Ketones Negative Ur Blood (Man) 1+ H Urine Nitrate Negative Urine Bilirubin Negative Urine Urobilinogen 0.2 Leukocyte Esterase Rfl Negative Urine RBC 0-2 Urine WBC 0-3 Ur Squamous Epith Cells Few Urine Bacteria Trace Urine Mucus Few H Salicylates Urine Opiates Screen Negative Urine Methadone Screen Negative Acetaminophen Ur Barbiturates Screen Negative Ur Phencyclidine Scrn Negative Ur Amphetamine Screen Positive A U Benzodiazepines Scrn Negative Urine Cocaine Screen Negative U Cannabinoids Screen Positive A Ethyl Alcohol 06/02/24 18:03 WBC 7.9 RBC 3.83 L Hgb 11.1 L Hct 33.7 L MCV 88.0 MCH 29.0 MCHC 32.9 RDW 13.0 Plt Count 328 MPV 10.4 Immature Gran % (Auto) 0.8 H Neut % (Auto) 78.8 H Lymph % (Auto) 15.0 L [place] % (Auto) 4.8 Eos % (Auto) 0.3 L Baso % (Auto) 0.3 Lymph # (Auto) 1.18 [place] # (Auto) 0.38 Eos # (Auto) 0.02 Baso # (Auto) 0.02 Abs Immat Gran (auto) 0.06 H Absolute Neuts (auto) 6.22 Absolute Nucleated RBC 0.00 Nucleated RBC % 0.0 PT 9.8 INR 0.9 APTT 24.7 Sodium 140 Potassium 4.6 Chloride 103 Carbon Dioxide 28 Anion Gap 9 BUN 20 H Creatinine 0.87 Estim Creat Clear Calc Not Reportable Estimated GFR > 60 Glucose 140 H Calculated Osmolality 294 Lactic Acid 0.6 Calcium 9.1 Total Bilirubin 0.2 AST 15 ALT 18 Alkaline Phosphatase 93 Troponin I < 4.0 Total Protein 7.4 Albumin 3.3 L TSH 0.37 Urine Color Urine Appearance Urine pH Ur Specific [place] Urine Protein Urine Glucose (UA) Urine Ketones Ur Blood (Man) Urine Nitrate Urine Bilirubin Urine Urobilinogen Leukocyte Esterase Rfl Urine RBC Urine WBC Ur Squamous Epith Cells Urine Bacteria Urine Mucus Salicylates 3.7 Urine Opiates Screen Urine Methadone Screen Acetaminophen < 2 L Ur Barbiturates Screen Ur Phencyclidine Scrn Ur Amphetamine Screen U Benzodiazepines Scrn Urine Cocaine Screen U Cannabinoids Screen Ethyl Alcohol < 3 Imaging Radiologist's impression: XR chest 2V Ordering provider: Shad Lucero MD History: 53 years Female with . pna . Comparison: June 02, 2024 FINDINGS: MEDIASTINUM: The cardiac silhouette is not enlarged. Congestive mathew. LUNGS: No effusions or pneumothorax. Bilateral interstitial changes with infiltrates, more in the left lower lobe OTHER: No free air under the diaphragm. Kyphosis centered in the lower thoracic area with multiple vertebrae loss of height most likely chronic in nature. IMPRESSION: Bilateral pneumonia more on the left side. Underlying pulmonary edema versus fibrotic changes cannot be excluded. DS: Summary Hospital Course Reason for hospitalization: acute substance intoxication/ pneumonia Hospital Course: patient was a 53-year-old female who presented to the emergency department via EMS after daughter found patient to altered mental status and was having difficulty moving certain extremities. patient reports she gotten a new delta 8 THC gummy which she takes at night for sleep aid and for her PTSD. per medical record patient's daughter reported patient had increasing altered mental status with confusion and episodes of unresponsiveness prior to arrival. upon arrival to the emergency department patient had immediate CT scan which was negative for acute process, patient was given IV fluids which she responded to patient symptoms resolved on with no neurological deficits. Patient does have a history of anxiety, PTSD, migraines, and ANAND. chest x-ray was performed which showed pneumonia patient was admitted to the medical unit for further observation and treatment of intoxication ammonia. 06/03/2024: patient seen and assessed in no acute distress patient with no neurological deficits moving all extremities appropriately and answering all questions. Patient was alert and oriented denied any chest pain, shortness of breath, nausea, vomiting, fever, chills, dizziness, or loss of vision. patient states that she tried a new form THC gummy I did however informed patient that she did test positive for amphetamines in her toxicology report she is unaware where the amphetamines could have came from. patient did receive IV Levaquin in the emergency department pneumonia she did report she was having productive cough which she thought was just from her smoking. patient with overall improvement symptoms following morning. Patient was discharged home on oral antibiotics for pneumonia as well as provided incentive spirometer to use I encourage patient on smoking cessation as well substance cessation. Status at Discharge Functional status at discharge: independent ambulation Overall status at discharge: patient is back to baseline Time Spent with Patient Time attestation: Total time spent providing and/or coordinating discharge services: Time spent: Greater than 30 minutes DS: Admitting Diagnosis Discharge Date 06/03/2024 Admitting Diagnosis acute substance intoxication/ pneumonia DS: Discharge Diagnosis Discharge Diagnosis (1) Tetrahydrocannabinol (THC) dependence: Code(s): F12.20 - Cannabis dependence, uncomplicated Status: Acute (2) Acute alteration in mental status: Code(s): R41.82 - Altered mental status, unspecified Status: Acute (3) Amphetamine abuse: Code(s): F15.10 - Other stimulant abuse, uncomplicated Status: Acute (4) Pneumonia: Qualifiers: Laterality: bilateral Lung location: lower lobe of lung Pneumonia type: due to unspecified organism Qualified Code(s): J18.9 - Pneumonia, unspecified organism Code(s): J18.9 - Pneumonia, unspecified organism Status: Acute Plan Disposition: Discharged to Home Discharge Plan Discharge Attending physician on discharge: Zacarias Meehan Discharging Clinician: Roxanna Harris Anticipated Discharge Date/Time: 06/03/24 08:54 Patient Disposition: Home, Self-Care Activity: may shower, unlimited and as tolerated Diet: heart healthy Discharge Instructions: You are being discharged after an episode of altered mental status secondary to substance intoxication. You were also found to have Pneumonia I have prescribed antibiotic therapy to treat the pneumonia. I encourage the use of the incentive spirometer provided as well a prescription of mucolytics. I also at this time encouraged immediate substance cessation to avoid any recurrent episodes of altered mental status or potential overdose. How can you care for yourself at home? ? Keep track of any new symptoms or changes in your symptoms. ? Rest until you feel better. ? Be safe with medicines. Take your medicines exactly as prescribed. Call your doctor if you think you are having a problem with your medicine. ? Do not drive after taking a prescription pain medicine. ? Ensure to follow-up with primary care physician as indicated and provide updated medication list provided to you at discharge. When should you call for help? Call 911 anytime you think you may need emergency care. For example, call if: ? You passed out (lost consciousness). Call your doctor now or seek immediate medical care if: ? You have new symptoms like fever, difficulty breathing, Chest pain, vomiting, or rash. ? You have new or different pain. ? You are confused and are having trouble thinking clearly. ? Your symptoms are getting worse. Watch closely for changes in your health, and be sure to contact your doctor if: ? You do not get better as expected. Patient Instructions: Antibiotic Form, Amoxicillin/Clavulanate Potassium (By mouth), Community Acquired Pneumonia (DC), Cannabis Use Disorder (DC), Polysubstance Use Disorder (DC) Patient Language: Polish Stand Alone Forms: General Discharge Information Follow-up/Referrals: [facility] [Primary Care Provider] - 2 weeks (call wednesday for follow up appointment) Discharge Medications: New amoxicillin-pot clavulanate 875-125 mg tablet 1 tablet PO Q12H Qty: 5 0RF azithromycin 250 mg tablet See Rx Instructions .ROUTE .COMPLEX Qty: 6 0RF Rx Instructions: For 250 mg dose pack: take 500 mg today (day 1), then 250 mg for 4 days (days 2-5) guaifenesin 200 mg tablet 200 mg PO QID PRN (Reason: cough) Qty: 30 0RF Continued prednisone 10 mg tablet 10 mg PO USEASDIRECTD Rx Instructions: 4 tablets x 4 days, 3 tablets x 3 days, 2 tablets x 2 days, 1 tablet on last day famotidine 40 mg tablet 40 mg PO DAILY aripiprazole 20 mg tablet 10 mg PO DAILY pregabalin 225 mg capsule 225 mg PO BID paroxetine mesylate 20 mg PO DAILY paroxetine mesylate 30 mg PO DAILY quetiapine 25 mg PO USEASDIRECTD Rx Instructions: 1/2 to 1 tablet as needed hydrocodone-acetaminophen 10-300 mg tablet 1 tablet PO QID PRN (Reason: Headache) alprazolam 0.5 mg tablet 0.5 mg PO TID PRN (Reason: Anxiety) meloxicam 15 mg Tablet 15 mg PO DAILY Date of admission: 06/02/24 22:19 Primary Care Provider: [facility] Admitting Provider: Zacarias Meehan Attending physician on admission: Roxanna Harris Condition: Stable Quality If No VTE Prophylaxis Answer both mechanical and pharmacologic: Reason no pharmacologic proph: low risk/not indicated -Patient's previous records reviewed on admission -ER notes reviewed in detail on admission -discussed all findings and current treatment plan with patient/Family/POA -Consultations reviewed for recommendations -Patient's disposition for safe discharge discussed with foster care case manager Dictation performed by [employer] direct speech recognition software, therefore hander in variants and typographical errors may occur. Hospitalist MIPS Advance Care Plan I have confirmed that the patient's Advanced Care Plan is present, code status is documented, or surrogate decision maker is listed in patient medical record.: Yes Medication Reconciliation I have utilized all available resources to obtain, update and review the patients current medications (includes all prescriptions, OTC, herbals, cannabis, and nutritional supplements).: Yes The patient is not eligible for med reconciliation; the patient is in a emergent medical situation where delaying treatment would jeopardize the patients health.: No Heart Failure (Exclusion) Patient has history of Heart Transplant or Left Ventricular Assistive Device?: No IF YES, STOP HERE Heart Failure (Qualifier) Patient has current or prior documentation of LVEF less than or equal to 40%, or mod/servere depressed LVSF?: No IF NO, STOP HERE
--- NOTE | 2024-06-03 10:35 | PC.NURSE ---
Patient IV line discontinued in anticipation of discharge. Patient refused hospital medications this am, stating that she will take her medicine when she gets home. Discharge instructions given to patient and patient voiced understanding. Personal items sent home with patient. Prescriptions transmitted to [email or web address] in [facility] upon patient request.
--- NOTE | 2024-06-09 09:13 | PC.NURSE ---
Discharge call back, unable, phone out of service
== END 2024-06-03 10:35 | disposition home or self-care (01) ==
LOC: CHSED 22:18 → CHS2ND 22:26
PROVIDERS: Admitting Provider Internal Medicine; Emergency Provider Emergency Medicine; Visit Provider Internal Medicine
DX: F12.229 Cannabis dependence with intoxication, unspecified (principal); F15.10 Other stimulant abuse, uncomplicated; J18.9 Pneumonia, unspecified organism; R41.82 Altered mental status, unspecified; F17.210 Nicotine dependence, cigarettes, uncomplicated; F43.10 Post-traumatic stress disorder, unspecified; F41.9 Anxiety disorder, unspecified; G43.909 Migraine, unspecified, not intractable, without status migrainosus; G47.33 Obstructive sleep apnea (adult) (pediatric); M19.90 Unspecified osteoarthritis, unspecified site; K21.9 Gastro-esophageal reflux disease without esophagitis; E89.0 Postprocedural hypothyroidism; Z96.651 Presence of right artificial knee joint; Z79.52 Long term (current) use of systemic steroids; Z79.899 Other long term (current) drug therapy; Z99.89 Dependence on other enabling machines and devices
CPT/HCPCS: 36415; 70450; 71045; 71046; 80053; 80143; 80179; 80307; 81001; 82077; 83605; 84443; 84484; 85025; 85610; 85730; 87040; 93005; 96360; 96361; 96365; 99285; G0378; G0379; J1956; J7030